=== PATIENT | female | born 1935 | race Caucasian/White ===

== ENCOUNTER 2017-10-19 05:53 | Emergency (ER) | payer OTHER ==
[2017-10-19] MEDS ORDERED: ONDANSETRON 4 MG/2 ML VIAL ONE (06:20)
[2017-10-19] MEDS ORDERED: FENTANYL CITR 100 MCG/2 ML ONE ×2 (06:20→08:30)
[2017-10-19 07:58] LABS: Protime INR 1.29
[2017-10-19] MEDS ORDERED: LIDOCAINE 1% MPF 5 ML VIAL ONE (08:03)
[2017-10-19 08:10] LABS: Absolute Lymphocytes (CBC) 3.5 K/uL (0.7-4.9); Absolute Monocytes 0.5 K/uL (0.1-1.3); Absolute Neutrophil 2.9 K/uL (1.8-8.0); Basophils % 1.2 % (0-1.3); Eosinophils % 0.7 % (0-4.4); Lymphocytes % 50.2 % (15.3-44.8); MCH 32.1 pg (27.0-35.0); MCV 94.4 fL (80-100); MPV 10.6 fL (7.6-11.3); RBC Red Blood Cell Count 4.45 M/uL (3.86-4.86)
[2017-10-19 08:15] LABS: ALT/SGPT 32 U/L (12-78); AST/SGOT 53 U/L (15-37); Albumin 3.2 g/dL (3.4-5.0); Alkaline Phosphatase 155 U/L (45-117); BUN Blood Urea Nitrogen 6 mg/dL (7-18); Bicarbonate 31 mmol/L (21-32); Bilirubin Total 1.2 mg/dL (0.2-1.0); Glucose Level 107 mg/dL (74-106); Potassium 3.7 mmol/L (3.5-5.1); Protein, Total 6.8 g/dL (6.4-8.2); Sodium Level 143 mmol/L (136-145)
--- NOTE | 2017-10-19 08:15 | RAD REPORT ---
EXAM DESCRIPTION: RAD - Chest Single View - 10/19/2017 7:49 am CLINICAL HISTORY: pre-op Chest pain. COMPARISON: No comparisons FINDINGS: Portable technique limits examination quality. Mild linear opacities in both lung bases most compatible with subsegmental atelectasis. The heart is mildly enlarged in size with a tortuous thoracic aorta. No displaced fractures. IMPRESSION: No acute intrathoracic process suspected.
[2017-10-19] MEDS ORDERED: MIDAZOLAM HCL 2 MG/2 ML INJ ONE (08:30)
[2017-10-19] MEDS ORDERED: NA CHLORIDE 0.9% 1,000 ML ONE (08:40)
[2017-10-19 08:46] LABS: Blood Morphology Comment NOT SEEN (NOT SEEN); Platelet Estimate DECR
--- NOTE | 2017-10-19 08:49 | RAD REPORT ---
EXAM DESCRIPTION: RAD - Wrist Left 3 View - 10/19/2017 7:15 am CLINICAL HISTORY: Pain;Deformity Pain COMPARISON: No comparisons FINDINGS: Significantly displaced and overriding fractures involving the distal aspect of the radius and ulna metaphysis. No carpal dislocation seen.
--- NOTE | 2017-10-19 09:23 | EDPHYS ---
Physician Documentation [facility] Name: Camilla Jarquin Age: 82 yrs Sex: Female : 1935 Arrival Date: 10/19/2017 Time: 05:53 Bed 3 Private MD: Frederick Wen E ED Physician Yves Castro HPI: 10/19 06:21 This 82 yrs old Female presents to ER via Wheelchair with complaints of Fall pm1 Injury, Wrist Pain. 06:21 Details of fall: The patient fell from an upright position, while walking. Onset: The pm1 symptoms/episode began/occurred just prior to arrival. Associated injuries: The patient sustained left wrist, obvious fracture. Severity of symptoms:. The patient has experienced a previous episode, Fall resulting in right wrist fracture. Patient with fall while going to the restroom resulting in left wrist injury. Patient did not hit head. No headache, neck pain, LOC. Patient able to walk after injury. No hip pain present. 06:21 Patient has a step down from her toilet to allow drainage. Patient fell walking back to pm1 her room from the bathroom and hit her left wrist against a cabinet. Historical: - Allergies: 06:09 Codeine; aa1 06:09 PENICILLINS; aa1 06:09 Sulfa (Sulfonamide Antibiotics); aa1 06:09 Toradol; aa1 - Home Meds: 06:09 carvedilol 6.25 mg Oral tab 1 tab 2 times per day [Active]; citalopram 40 mg tab 1 tab aa1 once daily [Active]; furosemide 40 mg Oral tab 1 tab 2 times per day [Active]; potassium chloride 10 mEq Oral TbTQ 1 tab once daily [Active]; Lantus 100 unit/mL Sub-Q soln 80 unit nightly [Active]; - PMHx: 06:09 Depression; Hypertension; neuropathy; Diabetes - IDDM; renal insufficiency; aa1 - PSHx: 06:09 AV Fistula; Hernia repair; aa1 - Immunization history:: Flu vaccine is not up to date. - Social history:: Smoking status: Patient/guardian denies using tobacco. - Ebola Screening: : No symptoms or risks identified at this time. ROS: 06:30 Constitutional: Negative for fever, chills, and weight loss, Eyes: Negative for injury, pm1 pain, redness, and discharge, ENT: Negative for injury, pain, and discharge, Neck: Negative for injury, pain, and swelling, Cardiovascular: Negative for chest pain, palpitations, and edema, Respiratory: Negative for shortness of breath, cough, wheezing, and pleuritic chest pain, Abdomen/GI: Negative for abdominal pain, nausea, vomiting, diarrhea, and constipation, Back: Negative for injury and pain, : Negative for injury, bleeding, discharge, and swelling. 06:30 Skin: Negative for injury, rash, and discoloration, Neuro: Negative for headache, weakness, numbness, tingling, and seizure. 06:30 MS/extremity: Positive for deformity, of the left wrist, Negative for paresthesias, tingling. Exam: 06:30 Constitutional: This is a well developed, well nourished patient who is awake, alert, pm1 and in no acute distress. Head/Face: Normocephalic, atraumatic. Eyes: Pupils equal round and reactive to light, extra-ocular motions intact. Lids and lashes normal. Conjunctiva and sclera are non-icteric and not injected. Cornea within normal limits. Periorbital areas with no swelling, redness, or edema. ENT: Nares patent. No nasal discharge, no septal abnormalities noted. Tympanic membranes are normal and external auditory canals are clear. Oropharynx with no redness, swelling, or masses, exudates, or evidence of obstruction, uvula midline. Mucous membranes moist. Neck: Trachea midline, no thyromegaly or masses palpated, and no cervical lymphadenopathy. Supple, full range of motion without nuchal rigidity, or vertebral point tenderness. No Meningismus. Chest/axilla: Normal chest wall appearance and motion. Nontender with no deformity. No lesions are appreciated. Cardiovascular: Regular rate and rhythm with a normal S1 and S2. No gallops, murmurs, or rubs. Normal PMI, no JVD. No pulse deficits. Respiratory: Lungs have equal breath sounds bilaterally, clear to auscultation and percussion. No rales, rhonchi or wheezes noted. No increased work of breathing, no retractions or nasal flaring. Abdomen/GI: Soft, non-tender, with normal bowel sounds. No distension or tympany. No guarding or rebound. No evidence of tenderness throughout. Back: No spinal tenderness. No costovertebral tenderness. Full range of motion. Skin: Warm, dry with normal turgor. Normal color with no rashes, no lesions, and no evidence of cellulitis. 06:30 Musculoskeletal/extremity: Extremities: grossly normal except: noted in the left wrist: deformity, ecchymosis, Circulation is intact in all extremities. brisk capillary refill to left hand. Sensation intact. left hand 06:30 Neuro: Orientation: is normal, Motor: moves all fours, Sensation: is normal, no obvious gross deficits. Vital Signs: 06:09 BP 144 / 66; Pulse 72; Resp 18; Temp 97.1; Pulse Ox 93% on R/A; Weight 90.72 kg; Height aa1 5 ft. 0 in. (152.40 cm); Pain 10/10; 06:55 BP 146 / 86; Pulse 68; Resp 20; Pulse Ox 95% on 2 lpm NC; aa1 07:32 BP 137 / 79; Pulse 82; Resp 16; Pulse Ox 95% on 2 lpm NC; tw2 08:19 BP 127 / 67; Pulse 75; Resp 21; Pulse Ox 97% on 2 lpm NC; tw2 08:40 BP 153 / 61; Pulse 73; Resp 15; Pulse Ox 97% on 100% Non-rebreather mask; hb 09:00 BP 107 / 58; Pulse 78; Resp 15; Pulse Ox 97% on 100% Non-rebreather mask; hb 09:30 BP 118 / 61; Pulse 77; Resp 16; Pulse Ox 100% on 100% Non-rebreather mask; hb 09:45 BP 112 / 50; Pulse 77; Resp 18; Pulse Ox 96% on 3 lpm NC; hb 06:09 Body Mass Index 39.06 (90.72 kg, 152.40 cm) aa1 MDM: 06:02 Patient medically screened. pm1 07:53 Physician consultation: Hemant Rojas MD was called at 07:53, regarding consult, pm1 patient's condition, and will see patient in ED, if I am unable to reduce the patient's wrist adequately. 08:30 ED course: Dr. Rojas present in ER to perform reduction of left wrist under conscious pm1 sedation. 09:18 Physician consultation: Hemant Rojas MD was contacted at 09:18, regarding Dr. Rojas pm1 reviewed x-ray: the alignment is improved and she can be discharged home. She can follow up in the office this week. 09:20 Data reviewed: vital signs. Data interpreted: Pulse oximetry: on room air is 97 %. pm1 Interpretation: normal. Counseling: I had a detailed discussion with the patient and/or guardian regarding: the historical points, exam findings, and any diagnostic results supporting the discharge/admit diagnosis, radiology results, the need for outpatient follow up, for definitive care, a orthopedic surgeon, to return to the emergency department if symptoms worsen or persist or if there are any questions or concerns that arise at home. 10/19 07:34 Order name: CBC with Diff; Complete Time: 08:59 pm1 10/19 07:34 Order name: CMP; Complete Time: 08:25 pm1 10/19 07:34 Order name: PT-INR; Complete Time: 08:10 pm1 10/19 07:34 Order name: Ptt, Activated; Complete Time: 08:10 pm1 10/19 07:34 Order name: Type And Screen; Complete Time: 09:50 pm1 10/19 08:11 Order name: Manual Differential; Complete Time: 08:59 EDMS 10/19 06:07 Order name: Wrist Left (3 View) XRAY; Complete Time: 08:59 pm1 10/19 07:34 Order name: Chest Single View XRAY; Complete Time: 08:25 pm1 10/19 09:13 Order name: Wrist Left 2 View; Complete Time: 09:50 EDMS 10/19 06:07 Order name: IV Saline Lock; Complete Time: 06:13 pm1 10/19 07:34 Order name: EKG; Complete Time: 07:34 pm1 10/19 08:10 Order name: Conscious Sedation; Complete Time: 09:40 tw2 Administered Medications: 06:20 Drug: fentaNYL (PF) 50 mcg Route: IVP; Site: right hand; aa1 07:42 Follow up: Response: No adverse reaction; Pain is decreased tw2 06:20 Drug: Zofran 4 mg Route: IVP; Site: right hand; aa1 07:41 Follow up: Response: No adverse reaction tw2 08:11 Not Given (cancel per provider): fentaNYL (PF) 25 mcg IVP once tw2 08:32 Drug: Versed 2 mg Route: IVP; Site: right wrist; hb 09:39 Follow up: Response: No adverse reaction hb 08:34 Drug: fentaNYL (PF) 25 mcg Route: IVP; Site: right wrist; hb 09:39 Follow up: Response: No adverse reaction hb 08:40 Drug: fentaNYL (PF) 25 mcg Route: IVP; Site: right wrist; hb 09:40 Follow up: Response: No adverse reaction hb 08:45 Drug: Versed 2 mg Route: IVP; Site: right wrist; hb 09:40 Follow up: Response: No adverse reaction hb 08:45 Drug: fentaNYL (PF) 25 mcg Route: IVP; Site: right wrist; hb 09:40 Follow up: Response: No adverse reaction hb Disposition: 10/19/17 09:23 Discharged to Home. Impression: Closed displaced fracture of distal left radius and ulna. - Condition is Stable. - Discharge Instructions: Cast or Splint Care, Adult, Wrist Fracture Treated With Immobilization, How to Use a Sling. - Prescriptions for Ultram 50 mg Oral Tablet - take 1 tablet by ORAL route every 6 hours As needed; 20 tablet. - Medication Reconciliation Form, Thank You Letter, Antibiotic Education, Prescription Opioid Use form. - Follow up: Emergency Department; When: As needed; Reason: Worsening of condition. Follow up: Hemant Rojas MD; When: 2 - 3 days; Reason: Recheck today's complaints, Continuance of care, Re-evaluation by your physician. - Problem is new. - Symptoms have improved. Addendum: 10/22/2017 19:04 Co-signature as Attending Physician, Yves syed Signatures: Dispatcher [employer] EDME Zeinab Coppola RN RN aa1 Yves Castro MD MD pkChacorta Wheeler NP E COMMERCE SPECIALIST pm1 Shannan Orr RN RN Darleen Carrington RN RN tw2 Corrections: (The following items were deleted from the chart) 08 09:13 08:50 Wrist Left 3 View+RAD.RAD.BRZ ordered. [facility] 10:25 09:23 10/19/2017 09:23 Discharged to Home. Impression: Closed displaced fracture of hb distal left radius and ulna. Condition is Stable. Forms are Medication Reconciliation Form, Thank You Letter, Antibiotic Education, Prescription Opioid Use. Follow up: Emergency Department; When: As needed; Reason: Worsening of condition. Follow up: Dr. Hemant Rojas; When: 2 - 3 days; Reason: Recheck today's complaints, Continuance of care, Re-evaluation by your physician. Problem is new. Symptoms have improved. pm1
--- NOTE | 2017-10-19 09:23 | ER ---
Nurse's Notes [facility] Name: Camilla Jarquin Age: 82 yrs Sex: Female : 1935 Arrival Date: 10/19/2017 Time: 05:53 Bed 3 Private MD: Frederick Wen E Diagnosis: Closed displaced fracture of distal left radius and ulna Presentation: 10/19 06:04 Presenting complaint: Patient states: she lost her balance and fell while using the aa1 restroom and injured her L wrist. Obvious deformity noted. Transition of care: patient was not received from another setting of care. Onset of symptoms was October 19, 2017. Risk Assessment: Do you want to hurt yourself or someone else? Patient reports no desire to harm self or others. Initial Sepsis Screen: Does the patient meet any 2 criteria? No. Patient's initial sepsis screen is negative. Does the patient have a suspected source of infection? No. Patient's initial sepsis screen is negative. Care prior to arrival: None. 06:04 Method Of Arrival: Wheelchair aa1 06:04 Acuity: SHOAIB 3 aa1 Historical: - Allergies: 06:09 Codeine; aa1 06:09 PENICILLINS; aa1 06:09 Sulfa (Sulfonamide Antibiotics); aa1 06:09 Toradol; aa1 - Home Meds: 06:09 carvedilol 6.25 mg Oral tab 1 tab 2 times per day [Active]; citalopram 40 mg tab 1 tab aa1 once daily [Active]; furosemide 40 mg Oral tab 1 tab 2 times per day [Active]; potassium chloride 10 mEq Oral TbTQ 1 tab once daily [Active]; Lantus 100 unit/mL Sub-Q soln 80 unit nightly [Active]; - PMHx: 06:09 Depression; Hypertension; neuropathy; Diabetes - IDDM; renal insufficiency; aa1 - PSHx: 06:09 AV Fistula; Hernia repair; aa1 - Immunization history:: Flu vaccine is not up to date. - Social history:: Smoking status: Patient/guardian denies using tobacco. - Ebola Screening: : No symptoms or risks identified at this time. Screenin:11 Abuse screen: Denies threats or abuse. Abuse screen: Denies injuries from another. aa1 Nutritional screening: No deficits noted. Tuberculosis screening: No symptoms or risk factors identified. Fall Risk Fall in past 12 months (25 points). Assessment: 06:11 General: Appears in no apparent distress. comfortable, Behavior is calm, cooperative, aa1 appropriate for age. Pain: Complains of pain in dorsal aspect of left forearm and left wrist Pain currently is 10 out of 10 on a pain scale. Neuro: Level of Consciousness is awake, alert, obeys commands, Oriented to person, place, time, situation. Respiratory: Airway is patent Respiratory effort is even, unlabored, Respiratory pattern is regular, symmetrical. GI: No signs and/or symptoms were reported involving the gastrointestinal system. : No signs and/or symptoms were reported regarding the genitourinary system. EENT: No signs and/or symptoms were reported regarding the EENT system. Derm: Skin is intact, is healthy with good turgor, Skin is pink, warm \T\ dry. Musculoskeletal: Circulation, motion, and sensation intact. Capillary refill < 3 seconds, Range of motion: limited in left wrist Bony deformity noted of left wrist. 06:55 Reassessment: Patient appears in no apparent distress at this time. Patient and/or aa1 family updated on plan of care and expected duration. Pain level reassessed. Patient is alert, oriented x 3, equal unlabored respirations, skin warm/dry/pink. Awaiting xray results. 07:33 Reassessment: Provider at bedside at this time. Cardiovascular: Denies chest pain, tw2 Heart tones S1 S2 Patient's skin is warm and dry. 08:20 Reassessment: Dr. Rojas at bedside at this time. tw2 08:30 Reassessment: Dr. Rojas and DMAASO Whatley at bedside for conscious sedation and reduction hb of left wrist. See paper chart. 09:30 Reassessment: Pt remains sedated, VSS, NAD. Family at bedside. hb Vital Signs: 06:09 BP 144 / 66; Pulse 72; Resp 18; Temp 97.1; Pulse Ox 93% on R/A; Weight 90.72 kg; Height aa1 5 ft. 0 in. (152.40 cm); Pain 10/10; 06:55 BP 146 / 86; Pulse 68; Resp 20; Pulse Ox 95% on 2 lpm NC; aa1 07:32 BP 137 / 79; Pulse 82; Resp 16; Pulse Ox 95% on 2 lpm NC; tw2 08:19 BP 127 / 67; Pulse 75; Resp 21; Pulse Ox 97% on 2 lpm NC; tw2 08:40 BP 153 / 61; Pulse 73; Resp 15; Pulse Ox 97% on 100% Non-rebreather mask; hb 09:00 BP 107 / 58; Pulse 78; Resp 15; Pulse Ox 97% on 100% Non-rebreather mask; hb 09:30 BP 118 / 61; Pulse 77; Resp 16; Pulse Ox 100% on 100% Non-rebreather mask; hb 09:45 BP 112 / 50; Pulse 77; Resp 18; Pulse Ox 96% on 3 lpm NC; hb 06:09 Body Mass Index 39.06 (90.72 kg, 152.40 cm) aa1 ED Course: 05:53 Patient arrived in ED. am2 05:54 Frederick Wen MD is Private Physician. am2 06:02 Chacorta Nieves NP is PHCP. pm1 06:02 Yves Castro MD is Attending Physician. pm1 06:05 Triage completed. aa1 06:09 Arm band placed on right wrist. Patient placed in an exam room, on a stretcher. aa1 06:11 Patient has correct armband on for positive identification. Bed in low position. Call aa1 light in reach. Pulse ox on. NIBP on. Warm blanket given. 06:11 Inserted saline lock: 22 gauge in right hand, using aseptic technique. Blood collected. aa1 06:25 Oxygen administration via nasal cannula \T\ 2L/min. aa1 06:55 X-ray completed. Portable x-ray completed in exam room. Patient tolerated procedure kw well. 07:00 Darleen Carrington, NATANAEL is Primary Nurse. tw2 07:16 Wrist Left (3 View) XRAY In Process Unspecified. EDMS 07:49 X-ray completed. Portable x-ray completed in exam room. Patient tolerated procedure jb2 well. 07:49 Chest Single View XRAY In Process Unspecified. EDMS 07:55 Consent for conscious sedation explained by physician. hb 08:20 EKG done, by manufacturing plant technician. reviewed by Chacorta Nieves NP. at1 08:35 Assist provider with reduction of left wrist using traction, manipulation, Set up for hb procedure. Performed by Hemant Rojas MD Immobilized with plaster sugar tong Patient tolerated well. 09:15 Wrist Left 2 View In Process Unspecified. EDMS 09:21 Hemant Rojas MD is Referral Physician. pm1 10:25 IV discontinued, intact, bleeding controlled, No redness/swelling at site. Pressure hb dressing applied. Administered Medications: 06:20 Drug: fentaNYL (PF) 50 mcg Route: IVP; Site: right hand; aa1 07:42 Follow up: Response: No adverse reaction; Pain is decreased tw2 06:20 Drug: Zofran 4 mg Route: IVP; Site: right hand; aa1 07:41 Follow up: Response: No adverse reaction tw2 08:11 Not Given (cancel per provider): fentaNYL (PF) 25 mcg IVP once tw2 08:32 Drug: Versed 2 mg Route: IVP; Site: right wrist; hb 09:39 Follow up: Response: No adverse reaction hb 08:34 Drug: fentaNYL (PF) 25 mcg Route: IVP; Site: right wrist; hb 09:39 Follow up: Response: No adverse reaction hb 08:40 Drug: fentaNYL (PF) 25 mcg Route: IVP; Site: right wrist; hb 09:40 Follow up: Response: No adverse reaction hb 08:45 Drug: Versed 2 mg Route: IVP; Site: right wrist; hb 09:40 Follow up: Response: No adverse reaction hb 08:45 Drug: fentaNYL (PF) 25 mcg Route: IVP; Site: right wrist; hb 09:40 Follow up: Response: No adverse reaction hb Outcome: 09:23 Discharge ordered by MD. pm1 10:24 Discharged to home via wheelchair, with family. hb 10:24 Condition: stable 10:24 Discharge instructions given to patient, family, Instructed on discharge instructions, follow up and referral plans. medication usage, Demonstrated understanding of instructions, follow-up care, medications, splint care, Prescriptions given X 1. 10:25 Patient left the ED. hb Signatures: Dispatcher [employer] EDMS Zeinab Coppola RN RN aa1 Kwabena Quigley jb2 Linette Kebede Amanda, founding partner EKG Tat1 Chacorta Nieves, DAMASO SIGHTER pm1 Shannan Orr RN RN Darleen Carrington RN RN tw2 Fely Tinsley am2 Corrections: (The following items were deleted from the chart) 10:03 08:50 Reassessment: hb hb
--- NOTE | 2017-10-19 09:40 | RAD REPORT ---
EXAM DESCRIPTION: RAD - Wrist Left 2 View - 10/19/2017 9:15 am CLINICAL HISTORY: post reduction- done Pain COMPARISON: Wrist Left 3 View dated 10/19/2017 FINDINGS: The previously noted significantly displaced intraarticular fracture of the distal radius and fracture of the distal ulna have been reduced in a splint. Significant reduction of the fracture s noted although bone detail is obscured.
--- NOTE | 2017-10-19 19:31 | CON ---
Date of Consultation: 10/19/2017 Attending Physician: Hemant Rojas MD. Reason For Consultation: Left wrist pain. History Of Present Illness: Ms. Jarquin is an 82-year-old female who presented to the ER today after s ustaining a fall and striking her left wrist. She reports subsequent pain and deformity to her left wrist. X-rays in the emergency room demonstrated a displaced angulated left distal radius fracture. I was called for further evaluation and treatment, given her significant displacement. The patient denies any head trauma or loss of consciousness. She denies any other musculoskeletal complaints at this time. Review of Systems: As above, otherwise negative. Past Medical History: Includes depression, hypertension, diabetes, and renal insufficiency. Past Surgical History: Includes a hernia repair and AV fistula. Home Medications: Carvedilol, citalopram, furosemide, potassium chloride, Lantus. Allergies: TO CODEINE, PENICILLIN, SULFA, TORADOL. Social History: She denies tobacco or alcohol use. Physical Examination: General: No apparent distress. HEENT: Normocephalic, atraumatic. Neck: Supple. Cardiovascular: Brisk cap refill to all digits. Chest: Nonlabored breathing. Abdomen: Nondistended. Psychiatric: Responds to exam. Musculoskeletal: Left upper extremity, she has deformity of her left wrist. No skin abrasions or op en injuries to her left wrist. There is a hematoma over the volar aspect of her left wrist. She has positive firing of EPL, FPL, intrinsics. Sensation is grossly intact to light touch in the radial, median, and ulnar nerve distribution. X-rays: X-rays of her left wrist demonstrate a displaced intra-articular distal radius fracture with 100% displacement and dorsal angulation. Postreduction, x-rays demonstrated a reduced intra-articul ar left distal radius fracture with the distal fragment now reduced onto the proximal fragment. No s ignificant dorsal angulation. There is a split of the radial styloid piece with minimal displacement . Assessment And Plan: Ms. Jarquin is an 82-year-old female with a left intra-articular distal radius fr acture. I discussed with the patient at length, risks and benefits associated with operative and non operative treatment as well as diagnosis and she expressed understanding. Given our significant disp lacement of her wrist, I recommended manipulation and closed reduction under conscious sedation. Con scious sedation was run by emergency room staff, and she tolerated the procedure without complication . She was placed in a sugar-tong splint. Post reduction films demonstrated good reduction of her fr acture. She will follow up in my clinic this week or early next week for repeat x-rays of her left w rist and we will discuss the further treatment based on the x-rays. She will keep her left upper ext remity elevated and to minimize swelling. RAJ/JANEY Voice ID: [id number] Report ID: [id number]
--- NOTE | 2017-10-20 06:52 | EKG ---
Test Date: 2017-10-19 Test Time: 08:13:51 [employer] Rep: IGNACIA MEASUREMENT RESULTS: Intervals: Rate: 73 [place]: 190 QRSD: 74 QT: 428 QTc: 471 [place]: P: 49 [place]: 190 QRS: -15 T: 32 INTERPRETIVE STATEMENTS: Normal sinus rhythm Inferior infarct, age undetermined Anterolateral infarct, age undetermined Abnormal ECG No previous ECG available for comparison Electronically Signed On 10-20-17 06:50:52 CDT by Ben Dallas
== END 2017-10-19 10:25 | disposition home or self-care (01) ==
LOC: ER 05:53
PROC: 0PSJXZZ Reposition Left Radius, External Approach (ICD-10-PCS; principal; 2017-10-19)
DX: S52.572A Other intraarticular fracture of lower end of left radius, initial encounter for closed fracture (principal); S52.692A Other fracture of lower end of left ulna, initial encounter for closed fracture; W01.190A Fall on same level from slipping, tripping and stumbling with subsequent striking against furniture, initial encounter; Y93.01 Activity, walking, marching and hiking; Y92.012 Bathroom of single-family (private) house as the place of occurrence of the external cause; I10 Essential (primary) hypertension; Z88.5 Allergy status to narcotic agent; Z88.0 Allergy status to penicillin; Z88.2 Allergy status to sulfonamides; E11.40 Type 2 diabetes mellitus with diabetic neuropathy, unspecified; Z79.4 Long term (current) use of insulin
CPT/HCPCS: 25605; 36415; 71045; 73100; 73110; 80053; 85025; 85610; 85730; 86850; 86900; 86901; 93005; J2250; J2405; J3010 ×2; J7030; 99285

== ENCOUNTER 2019-03-05 10:30 | Emergency (ER) | payer OTHER ==
--- OUTSIDE RECORDS SUMMARY | 2019-03-05 10:32 | XMS REPORT ---
:1935 Author Organization [employer] Care Team Providers Name Role Phone Hemant Rojas Provider Role Unavailable Allergies, Adverse Reactions, Alerts Substance Reaction Event Type penicillin Info Not Available Drug Allergy codeine Info Not Available Drug Allergy Sulfa Info Not Available Drug Allergy Problems Problem Type Condition Code Onset Dates Condition Status Assessment Pain in left wrist M25.532 Active Assessment Other intraarticular fracture of S52.572D Active lower end of left radius, subsequent encounter for closed fracture with routine healing Medications Medication Code Code Instructions Start End Date Status Dosage System Date Carvedilol [facility] 68362987243 6.25 MG Oral Active (Prior Auth: Rx Ref#:[id number]) Furosemide ND 85814530925 40 MG Oral Active (Prior Auth: Rx Ref#:[id number]) Lantus ND 73232544488 100 UNIT/ML Active (Prior [employer] Subcutaneous Auth: Rx Ref#:[id number]) Tramadol HCl ND [id number] 50 MG Orally Oct 26, Nov 05, Active 1 tablet every 6 hrs 2017 2017 as needed Tramadol HCl [facility] 64367821007 50 MG Oral Active (Schedule IV Drug) (Prior Auth: Rx Ref#:[id number]) Klor-Con 10 [facility] 90401626301 10 MEQ Oral Active (Prior Auth: Rx Ref#:[id number]) Celexa ND 76058100529 20 MG Orally Oct 26, Active 1 tablet Once a day 2018 Results No Known Results Summary Purpose [employer] Submission
--- OUTSIDE RECORDS SUMMARY | 2019-03-05 10:32 | XMS REPORT ---
:1935 Author Organization eClinical[employer] Care Team Providers Name Role Phone Hemant Rojas Provider Role Unavailable Allergies, Adverse Reactions, Alerts Substance Reaction Event Type penicillin Info Not Available Drug Allergy codeine Info Not Available Drug Allergy Sulfa Info Not Available Drug Allergy Problems Problem Type Condition Code Onset Dates Condition Status Assessment Wrist pain, left M25.532 Active Assessment Other closed intra-articular S52.572A Active fracture of distal end of left radius, initial encounter Medications Medication Code Code Instructions Start End Date Status Dosage System Date Tramadol HCl [facility] 37492767712 50 MG Orally Oct 26, Nov 05, Active 1 tablet every 6 hrs 2017 2017 as needed Tramadol HCl [facility] 67251498010 50 MG Oral Active (Schedule IV Drug) (Prior Auth: Rx Ref#:[id number]) Klor-Con 10 [facility] 65408014120 10 MEQ Oral Active (Prior Auth: Rx Ref#:[id number]) Furosemide ND [id number] 40 MG Oral Active (Prior Auth: Rx Ref#:[id number]) Carvedilol [facility] 93202397958 6.25 MG Oral Active (Prior Auth: Rx Ref#:[id number]) Lantus ND 54860701702 100 UNIT/ML Active (Prior [employer] Auth: Rx Ref#:[id number]) Celexa ND 03223651700 20 MG Orally Oct 26, Active 1 tablet Once a day 2017 Results No Known Results Summary Purpose eClinicalWorks Submission
[2019-03-05] MEDS ORDERED: FENTANYL CITR 100 MCG/2 ML ONE (11:12)
[2019-03-05] MEDS ORDERED: ONDANSETRON 4 MG (ODT) TAB ONE (11:13)
[2019-03-05] MEDS ORDERED: LIDOCAINE 4% PATCH ONE (11:13)
--- NOTE | 2019-03-05 11:48 | RAD REPORT ---
EXAM DESCRIPTION: CT - Stone Protocol - 03/05/2019 11:26 am CLINICAL HISTORY: Abdominal pain. COMPARISON: None. TECHNIQUE: Computed axial tomography of the abdomen pelvis was obtained without oral or IV contrast. Lack of IV and oral contrast limits evaluation of solid organs, bowel, and vessels. Coronal reformat lenny images were obtained and reviewed. All CT scans are performed using dose optimization technique as appropriate and may include automated exposure control or mA/KV adjustment according to patient size. FINDINGS: 2 millimeter calculus left kidney. No hydronephrosis. 6.3 centimeter peripherally calcifie d mass right kidney. There appear to be coils medial to this. An ureteral calculus is not noted. A bladder calculus is not present. Cirrhotic liver. The spleen is mildly to moderately enlarged. Varices are present. Atrophic pancreas There is no evidence of diverticulitis. The appendix appears normal Umbilical hernia contains fat. Neck measures 23 millimeters. Herniated sac measures 58 millimeters. N ew small supra umbilical hernia contains fat. Small right pleural effusion. Small amount of ascites Small to moderate hiatal hernia IMPRESSION: 2 millimeter nonobstructing left renal calculus It appears that the patient has had renal arterial coils placed for the 6.3 centimeter peripherally c alcified right renal mass. Presumably this represents an arterial aneurysm. This should be correlated clinically. If this is not the case then renal ultrasound would be recommended for further evaluatio n.
--- NOTE | 2019-03-05 12:44 | ER ---
Nurse's Notes [facility] Name: Camilla Jarquin Age: 83 yrs Sex: Female : 1935 Arrival Date: 03/05/2019 Time: 10:32 Bed 4 Private MD: Frederick Wen E Diagnosis: Low back pain Presentation: 03/05 10:42 Presenting complaint: Child states: "A week and a half ago she reached for the table aj1 side lamp to turn it off and something pulled or something and it hurt real bad, we've been trying to doctor it at home, she had Tramadol from when she broke her arm a couple years ago so we've been giving her that and icy hot patches but the pain has gotten unbearable." Patient reports lower back pain. Transition of care: patient was not received from another setting of care. Onset of symptoms was 2018. Risk Assessment: Do you want to hurt yourself or someone else? Patient reports no desire to harm self or others. Initial Sepsis Screen: Does the patient meet any 2 criteria? No. Patient's initial sepsis screen is negative. Does the patient have a suspected source of infection? No. Patient's initial sepsis screen is negative. Care prior to arrival: None. 10:42 Method Of Arrival: Wheelchair aj1 10:42 Acuity: SHOAIB 3 aj1 Triage Assessment: 10:46 General: Appears in no apparent distress. uncomfortable, Behavior is calm, cooperative, aj1 appropriate for age. Pain: Complains of pain in low back area. Neuro: Level of Consciousness is awake, alert, obeys commands. Cardiovascular: Patient's skin is warm and dry. Respiratory: Airway is patent Respiratory effort is even, unlabored, Respiratory pattern is regular, symmetrical. Musculoskeletal: Range of motion: intact in all extremities. Historical: - Allergies: 10:46 Codeine; aj1 10:46 PENICILLINS; aj1 10:46 Sulfa (Sulfonamide Antibiotics); aj1 10:46 Toradol; aj1 - Home Meds: 10:46 potassium chloride 10 mEq Oral TbTQ 1 tab once daily [Active]; carvedilol 6.25 mg Oral aj1 tab 1 tab 2 times per day [Active]; furosemide 40 mg Oral tab 1 tab 2 times per day [Active]; citalopram 40 mg tab 1 tab once daily [Active]; Lantus 100 unit/mL Sub-Q soln 80 unit nightly [Active]; Krill Oil ([place] 3 and 6) 1,500-165-67.5 mg oral cap 350 mg [Active]; iron oral oral [Active]; Prilosec 20 mg Oral cpDR 1 cap once daily [Active]; - PMHx: 10:46 Depression; Diabetes - IDDM; Hypertension; neuropathy; renal insufficiency; aj1 - Immunization history:: Flu vaccine is not up to date. - Social history:: Smoking status: Patient/guardian denies using tobacco. - Ebola Screening: : Patient denies travel to an Ebola-affected area in the 21 days before illness onset. Screenin:02 Abuse screen: Denies threats or abuse. Nutritional screening: No deficits noted. tw2 Tuberculosis screening: No symptoms or risk factors identified. Fall Risk Secondary diagnosis (15 points) impaired mobility. Assessment: 10:50 General: Appears in no apparent distress. uncomfortable, Behavior is calm, cooperative, jl7 appropriate for age. Pain: Complains of pain in left low back Pain does not radiate. Pain currently is 10 out of 10 on a pain scale. Quality of pain is described as sharp, Pain began x 2 weeks Is continuous. Neuro: Level of Consciousness is awake, alert, obeys commands, Oriented to person, place, time, situation, Moves all extremities. Full function. Cardiovascular: Patient's skin is warm and dry. Respiratory: Airway is patent Respiratory effort is even, unlabored, Respiratory pattern is regular, symmetrical. GI: No signs and/or symptoms were reported involving the gastrointestinal system. : No signs and/or symptoms were reported regarding the genitourinary system. EENT: No signs and/or symptoms were reported regarding the EENT system. Derm: Skin is pink, warm \\T\\ dry. Musculoskeletal: Swelling absent Tenderness present in left low back Reports pain in left low back Pain is 10 out of 10 on a pain scale. 12:19 Reassessment: Patient appears in no apparent distress at this time. Patient and/or jl7 family updated on plan of care and expected duration. Pain level reassessed. Patient is alert, oriented x 3, equal unlabored respirations, skin warm/dry/pink. pain decreased at this time. Vital Signs: 10:46 BP 166 / 77; Pulse 75; Resp 20; Temp 97.2(TE); Pulse Ox 90% on R/A; Weight 90.72 kg aj1 (R); Height 5 ft. 0 in. (152.40 cm) (R); Pain 10/10; 12:22 BP 140 / 61; Pulse 74; Resp 19 S; Pulse Ox 95% on R/A; Pain 9/10; jl7 13:00 BP 136 / 75; Pulse 74; Resp 16 S; Pulse Ox 94% on R/A; Pain 9/10; jl7 10:46 Body Mass Index 39.06 (90.72 kg, 152.40 cm) aj1 ED Course: 10:32 Patient arrived in ED. mr 10:32 Frederick Wen MD is Private Physician. mr 10:43 Triage completed. aj1 10:46 Arm band placed on Patient placed in an exam room. aj1 10:48 Bed in low position. Call light in reach. Side rails up X2. Adult w/ patient. tw2 10:49 Chacorta Nieves NP is PHCP. pm1 10:49 Karla Luu MD is Attending Physician. pm1 10:49 Wendie Morales RN is Primary Nurse. jl7 11:25 CT completed. Patient tolerated procedure well. Patient moved back from CT. mw3 11:26 CT Stone Protocol In Process Unspecified. EDMS 12:19 No provider procedures requiring assistance completed. Patient did not have IV access jl7 during this emergency room visit. Administered Medications: 11:17 Drug: Lidoderm 5 % (700 mg/patch) 1 patches {Note: Lidoderm 4% patch applied.} Route: jl7 Topical; Site: affected area; 11:45 Follow up: Response: No adverse reaction; Pain is decreased jl7 11:18 Drug: fentaNYL (PF) 25 mcg Route: IM; Site: left deltoid; jl7 11:45 Follow up: Response: No adverse reaction; Pain is decreased jl7 11:18 Drug: Zofran 4 mg Route: PO; jl7 11:55 Follow up: Response: No adverse reaction jl7 Outcome: 12:43 Discharge ordered by . pm1 13:00 Discharged to home via wheelchair, with family. jl7 13:00 Condition: stable 13:00 Discharge instructions given to patient, family, Instructed on discharge instructions, the need for admit, medication usage, Demonstrated understanding of instructions, follow-up care, medications, Prescriptions given X 2. 13:00 Patient left the ED. [email or web address] Signatures: Dispatcher [employer] EDMS Inna Tyler, RN RN aj1 Claudia Hayes EzequielChacorta, STUNT PERSON STUNT PERSON pm1 Darleen Carrington RN RN tw2 Wendie Morales RN RN jl7 Karyn Lund 3
--- NOTE | 2019-03-05 12:44 | EDPHYS ---
Physician Documentation [facility] Name: Camilla Jarquin Age: 83 yrs Sex: Female : 1935 Arrival Date: 03/05/2019 Time: 10:32 Bed 4 Private MD: Frederick Wen E ED Physician Karla Luu HPI: 03/05 11:05 This 83 yrs old Female presents to ER via Wheelchair with complaints of Back pm1 Pain. 11:05 The patient presents with pain that is acute. The symptoms are located in the low back. pm1 Onset: The symptoms/episode began/occurred 1.5 week(s) ago. The pain does not radiate. Associated signs and symptoms: The patient has no apparent associated signs or symptoms, Pertinent negatives: abdominal pain, chest pain, dysuria, fever, nausea, vomiting, shortness of breath. The problem was sustained from twisting, patient was reaching over in the bed to turn off the lamp and felt pain in her left lower back. Modifying factors: The patient symptoms are alleviated by remaining still, the patient symptoms are aggravated by movement. Severity of symptoms: in the emergency department the symptoms are unchanged. The patient has not recently seen a physician. Historical: - Allergies: 10:46 Codeine; aj1 10:46 PENICILLINS; aj1 10:46 Sulfa (Sulfonamide Antibiotics); aj1 10:46 Toradol; aj1 - Home Meds: 10:46 potassium chloride 10 mEq Oral TbTQ 1 tab once daily [Active]; carvedilol 6.25 mg Oral aj1 tab 1 tab 2 times per day [Active]; furosemide 40 mg Oral tab 1 tab 2 times per day [Active]; citalopram 40 mg tab 1 tab once daily [Active]; Lantus 100 unit/mL Sub-Q soln 80 unit nightly [Active]; Krill Oil ([place] 3 and 6) 1,500-165-67.5 mg oral cap 350 mg [Active]; iron oral oral [Active]; Prilosec 20 mg Oral cpDR 1 cap once daily [Active]; - PMHx: 10:46 Depression; Diabetes - IDDM; Hypertension; neuropathy; renal insufficiency; aj1 - Immunization history:: Flu vaccine is not up to date. - Social history:: Smoking status: Patient/guardian denies using tobacco. - Ebola Screening: : Patient denies travel to an Ebola-affected area in the 21 days before illness onset. ROS: 11:05 Constitutional: Negative for fever, chills, and weight loss, Neck: Negative for injury, pm1 pain, and swelling, Cardiovascular: Negative for chest pain, palpitations, and edema, Respiratory: Negative for shortness of breath, cough, wheezing, and pleuritic chest pain, Abdomen/GI: Negative for abdominal pain, nausea, vomiting, diarrhea, and constipation. 11:05 : Negative for injury, bleeding, discharge, and swelling, MS/Extremity: Negative for injury and deformity, Skin: Negative for injury, rash, and discoloration, Neuro: Negative for headache, weakness, numbness, tingling, and seizure. 11:05 Back: Positive for of the left low back pain. Exam: 11:05 Constitutional: This is a well developed, well nourished patient who is awake, alert, pm1 and in no acute distress. Head/Face: Normocephalic, atraumatic. Neck: Trachea midline, no thyromegaly or masses palpated, and no cervical lymphadenopathy. Supple, full range of motion without nuchal rigidity, or vertebral point tenderness. No Meningismus. Chest/axilla: Normal chest wall appearance and motion. Nontender with no deformity. No lesions are appreciated. Cardiovascular: Regular rate and rhythm with a normal S1 and S2. No gallops, murmurs, or rubs. Normal PMI, no JVD. No pulse deficits. Respiratory: Lungs have equal breath sounds bilaterally, clear to auscultation and percussion. No rales, rhonchi or wheezes noted. No increased work of breathing, no retractions or nasal flaring. Abdomen/GI: Soft, non-tender, with normal bowel sounds. No distension or tympany. No guarding or rebound. No evidence of tenderness throughout. 11:05 Skin: Warm, dry with normal turgor. Normal color with no rashes, no lesions, and no evidence of cellulitis. MS/ Extremity: Pulses equal, no cyanosis. Neurovascular intact. Full, normal range of motion. 11:05 Back: focal point pain present to left side of lower back. 11:05 Back: vertebral tenderness, is not appreciated. 11:05 Neuro: Orientation: is normal, Motor: is normal, moves all fours. Vital Signs: 10:46 BP 166 / 77; Pulse 75; Resp 20; Temp 97.2(TE); Pulse Ox 90% on R/A; Weight 90.72 kg aj1 (R); Height 5 ft. 0 in. (152.40 cm) (R); Pain 10/10; 12:22 BP 140 / 61; Pulse 74; Resp 19 S; Pulse Ox 95% on R/A; Pain 9/10; jl7 13:00 BP 136 / 75; Pulse 74; Resp 16 S; Pulse Ox 94% on R/A; Pain 9/10; jl7 10:46 Body Mass Index 39.06 (90.72 kg, 152.40 cm) aj1 MDM: 10:49 Patient medically screened. pm1 12:41 Data reviewed: vital signs. Data interpreted: Pulse oximetry: on room air is 95 %. pm1 Interpretation: normal. Counseling: I had a detailed discussion with the patient and/or guardian regarding: the historical points, exam findings, and any diagnostic results supporting the discharge/admit diagnosis, radiology results, the need for outpatient follow up, to return to the emergency department if symptoms worsen or persist or if there are any questions or concerns that arise at home. 03/05 11:05 Order name: CT Stone Protocol; Complete Time: 12:00 pm1 Administered Medications: 11:17 Drug: Lidoderm 5 % (700 mg/patch) 1 patches {Note: Lidoderm 4% patch applied.} Route: jl7 Topical; Site: affected area; 11:45 Follow up: Response: No adverse reaction; Pain is decreased jl7 11:18 Drug: fentaNYL (PF) 25 mcg Route: IM; Site: left deltoid; jl7 11:45 Follow up: Response: No adverse reaction; Pain is decreased jl7 11:18 Drug: Zofran 4 mg Route: PO; jl7 11:55 Follow up: Response: No adverse reaction jl7 Disposition: 16:14 Co-signature as Attending Physician, Karla Luu MD. ma2 Disposition: 03/05/19 12:43 Discharged to Home. Impression: Low back pain. - Condition is Stable. - Discharge Instructions: Back Pain, Adult, Musculoskeletal Pain, Back Injury Prevention, [id number]. - Prescriptions for Lidoderm 5 % Topical adhesive patch,medicated - apply 1 patch by TRANSDERMAL route once daily As needed; 30 Transdermal Patch. Valium 2 mg Oral Tablet - take 1 tablet by ORAL route every 8 hours As needed; 10 tablet. - Medication Reconciliation Form, Thank You Letter, Antibiotic Education, Prescription Opioid Use form. - Follow up: Emergency Department; When: As needed; Reason: Worsening of condition. Follow up: Private Physician; When: 2 - 3 days; Reason: Recheck today's complaints, Continuance of care, Re-evaluation by your physician. - Problem is new. - Symptoms have improved. Signatures: Dispatcher [employer] EDMS Inna Tyler RN RN aj1 Chacorta Nieves NP [employer] pm1 Wendie Morales RN RN jl7 Karla Luu MD MD ma2 Corrections: (The following items were deleted from the chart) 13:00 12:43 03/05/2019 12:43 Discharged to Home. Impression: Low back pain. Condition is jl7 Stable. Forms are Medication Reconciliation Form, Thank You Letter, Antibiotic Education, Prescription Opioid Use. Follow up: Emergency Department; When: As needed; Reason: Worsening of condition. Follow up: Private Physician; When: 2 - 3 days; Reason: Recheck today's complaints, Continuance of care, Re-evaluation by your physician. Problem is new. Symptoms have improved. pm1
[2019-03-05 17:44] VITALS: TEMP 97.2
[2019-03-05 17:46] VITALS: BP 136/75; O2SAT 94
== END 2019-03-05 13:00 | disposition home or self-care (01) ==
LOC: ER 10:30
DX: M54.5 Low back pain (principal); Z88.6 Allergy status to analgesic agent; Z88.0 Allergy status to penicillin; Z88.2 Allergy status to sulfonamides; E11.9 Type 2 diabetes mellitus without complications; F41.9 Anxiety disorder, unspecified; I10 Essential (primary) hypertension; Z79.4 Long term (current) use of insulin
CPT/HCPCS: 76377; 74176; 96372; 99284; J3010

== ENCOUNTER 2019-08-11 11:13 | Inpatient (IN) | payer OTHER ==
--- OUTSIDE RECORDS SUMMARY | 2019-08-11 12:23 | XMS REPORT ---
:1935 Author Organization [facility] Address [address] [place] [address] [address] [place] [address] Care Team Providers Name Role Phone Unavailable Unavailable Unavailable Problems Condition Condition Condition Status Onset Resolution Last Treating Co mments Source Name Details Category Date Date Treatment Clinician Date Pain in Pain in Diagnosis Active [facility] wrist Nikkie k[facility] - [facility] ent Clinics Other Other Diagnosis Active [facility] intraartic intraartic Nikkie kes - ular ular [facility] fracture fracture l of lower of lower Outpat i end of end of ent left left Clinics radius, radius, subsequent subsequent encounter encounter for closed for closed fracture fracture with with routine routine healing healing Allergies, Adverse Reactions, Alerts Allergy Allergy Status Severity Reaction(s) Onset Inactive Treating Comm ents Source Name Type Date Date Clinician penicill Adverse Active Info Not [facility] Reaction Available [facility]ics codeine Adverse Active Info Not [facility] Reaction Available [facility] Sulfa Adverse Active Info Not [facility] Reaction Available [facility] - [facility] ent [facility] Medications Ordered Filled Start Stop Current Ordering Indication Dosage Frequency Signature Comments Components Source Medication Medication Date Date Medication? Clinician (SIG) Name Name Celexa Celexa Yes Hemant [address] 10-26 [facility]jas [facility] - [facility]: [facility] 00 l [facility] ent Clinics Tramadol Tramadol 2018- No Hemant [address] [facility] [address] HCl HCl 10-26 Roajs as needed [facility]00 [facility] 00 :00 l [facility] ent [facility] Tramadol Tramadol Yes Hemant (Schedule [facility] HCl HCl Rojas IV Drug) [facility] - (Prior [facility] Auth: Rx l Ref#:[id number] [facility] [id number]) ent Clinics Klor-Con 10 Klor-Con 10 Yes Hemant (Prior [facility] Rojas Auth: Rx [facility] - Ref#:[id number] [facility] [id number]) [facility] ent [facility] Furosemide Furosemide Yes Hemant (Prior [facility] Auth: Rx [facility] - Ref#:[id number] [facility] [id number]) [facility] ent Clinics Carvedilol Carvedilol Yes Hemant (Prior [facility] Auth: Rx [facility] - Ref#:[id number] [facility] [id number]) [facility] ent Clinics Lantus Lantus Yes Hemant (Prior [facility] [employer] [place] Auth: Rx Kajal es - Ref#:[id number] [facility] [id number]) [facility] ent [facility] Procedures This patient has no known procedures. Encounters Start End Encounter Admission Attending Care Care Encounter Source Date/Time Date/Time Type Type Clinicians Facility Department ID 2017-11-03 2017-11-03 Outpatient Tj Sol[facility] [id number] [facility] 14:[facility] 14[facility] 2017-10-26 2017-10-26 Outpatient Tj [facility] [id number] [facility] [address] 08:30:00 08:30:00 [facility] Results This patient has no known results.
--- NOTE | 2019-08-11 12:38 | RAD REPORT ---
EXAM DESCRIPTION: [place] Single View08/11/2019 12:29 pm CLINICAL HISTORY: Shortness of breath COMPARISON: 2018 FINDINGS: Left base is hazy. Right lung appears clear of acute infiltrate. The heart is enlarged IMPRESSION: Left base is hazy. This could be secondary to atelectasis, pneumonia or pleural effusion
[2019-08-11] MEDS ORDERED: FUROSEMIDE 40 MG/4 ML VIAL ONE (12:52)
[2019-08-11 12:54] LABS: Basophils % 0.7 % (0-1.3); Hematocrit 41.4 % (36.0-45.0); Lymphocytes % 53.2 % (15.3-44.8); MPV 9.8 fL (7.6-11.3); RBC Red Blood Cell Count 3.89 M/uL (3.86-4.86)
[2019-08-11 13:14] LABS: ALT/SGPT 32 U/L (12-78); AST/SGOT 68 U/L (15-37); Albumin 2.4 g/dL (3.4-5.0); Alkaline Phosphatase 266 U/L (45-117); BUN Blood Urea Nitrogen 7 mg/dL (7-18); Bicarbonate 33 mmol/L (21-32); Bilirubin Direct 1.4 mg/dL (0-0.2); Glucose Level 147 mg/dL (74-106); Magnesium 1.8 mg/dL (1.8-2.4); NT PRO-BNP 405 pg/mL (<450); Protein, Total 6.2 g/dL (6.4-8.2); Sodium Level 140 mmol/L (136-145); Troponin (Emerg Dept Use Only) < 0.02 ng/mL (0.0-0.045)
[2019-08-11 14:10] LABS: Blood Morphology Comment NOTED (NOT SEEN); Macrocytosis 1+; Platelet Estimate DECR; Urine White Blood Cell Casts OK
[2019-08-11] MEDS ORDERED: POTASSIUM CL SA 10 MEQ TAB PO ONE (14:29)
[2019-08-11] MEDS ORDERED: ACETAMINOPHEN 500 MG TAB ONE (16:09)
[2019-08-11] MEDS ORDERED: ALBUTEROL 2.5 MG/3 ML NEB SOL NEB PRN (17:44)
[2019-08-11] MEDS ORDERED: ONDANSETRON 4 MG/2 ML VIAL IV PRN (17:44)
--- NOTE | 2019-08-11 17:53 | P.HP ---
Certification for Inpatient Patient admitted to: Inpatient With expected LOS: >2 Midnights Patient will require the following post-hospital care: Home Health Services Practitioner: I am a practitioner with admitting privileges, knowledge of patient current condition, hospital course, and medical plan of care. Services: Services provided to patient in accordance with Admission requirements found in Title 42 Section 412.3 of the Code of Federal Regulations Patient History Date of Service: 08/11/19 Reason for admission: GENERALIZED WEAKNESS, swelling, pain in right breast History of Present Illness: 84-year-old female with past medical history of diabetes, hypertension, depression, CKD stage 3 brought to the ER with generalized weakness and anasarca which has been going on for the last few days which has been progressively worsening and was brought to the ER. Patient is a poor historian hence most of the history is obtained from the chart review and also talking to the family member who is at the bedside, the patient is bedridden since February last year. Patient has lot of pain in the back. She started having dysuria and hematuria as well, and noticed generalized swelling especially of the lower extremities and also swelling and tenderness over the right breast. She is also complaining of shortness of breath. Denies any fever or chills or no sick contacts Patient was assessed in the ER and was found to have generalized swelling along with tenderness over the right breast concerning for mastitis and was admitted for further management and workup. , Allergies codeine Allergy (Unverified 11/24/16 23:18) Unknown ketorolac Allergy (Unverified 11/24/16 23:18) Unknown Sulfa (Sulfonamide Antibiotics) Allergy (Unverified 11/24/16 23:18) Unknown Penicillins Allergy (Uncoded 11/24/16 23:18) Unknown - Past Medical/Surgical History -: Diabetes, hypertension, hyperlipidemia, depression, CKD Past Surgical History: Reviewed- Non-Contributory - Family History Family History: Reviewed- Non-Contributory - Social History Smoking Status: Never smoker Review of Systems is unable to be obtained Physical Examination - Vital Signs Temperature: 98.2 F Blood Pressure: 136/88 Pulse: 78 Respirations: 18 Pulse Ox (%): 96 - Physical Exam General: Alert, Mild distress, Obese HEENT: Atraumatic, Normocephalic Neck: Supple Respiratory: Diminished, Crackles/rales Cardiovascular: Normal pulses, Regular rate/rhythm, Edema Capillary refill: <2 Seconds Gastrointestinal: Soft and benign, W/out hepatosplenomegaly Musculoskeletal: Swelling, Erythema, Tenderness, Other (Right breast tenderness, erythema present) Integumentary: Tenderness/swelling, Erythema Neurological: Normal speech Lymphatics: No axilla or inguinal lymphadenopathy Rectal: Deferred - Studies Laboratory Data (last 24 hrs) 08/11/19 12:33: WBC 5.6, Hgb 13.7, Hct 41.4, Plt Count 91 L 08/11/19 12:33: Sodium 140, Potassium 3.0 L, BUN 7, Creatinine 0.52 L, Glucose 147 H, Magnesium 1.8, Total Bilirubin 3.0 H, AST 68 H, ALT 32, Alkaline Phosphatase 266 H Assessment and Plan - Problems (Diagnosis) (1) Anasarca Current Visit: Yes Status: Acute (2) Acute mastitis of right breast Current Visit: Yes Status: Acute (3) Shortness of breath Current Visit: Yes Status: Acute (4) Diabetes Current Visit: Yes Status: Acute (5) Hypertension Current Visit: Yes Status: Acute (6) Elevated LFTs Current Visit: Yes Status: Acute - Plan Anasarca Acute mastitis of right breast Shortness of breath Possible pneumonia Caused by Gram positive cocci Elevated LFTs Diabetes Hypertension Hyperlipidemia Obesity Unable to ambulate Plan Will get a workup for anasarca Will get a CT of the chest and abdomen pelvis to rule out any etiology Get an echocardiogram Start on empirical antibiotics start on diuretics monitor volume status insulin sliding scale Hydralazine MA Oxygen support may need a ultrasound of the breast if CT is nonconclusive May need surgical consult GI/DVT prophylaxis Advanced directive DNR DNI - Advance Directives Does patient have a Living Will: No Does patient have a Durable POA for Healthcare: No Time Spent Managing Pts Care (In Minutes): 45
[2019-08-11] MEDS ORDERED: AZTREONAM 1 GM/VIAL IV SCH (18:00)
[2019-08-11 18:12] LABS: Urine Blood 2+ (NEG); Urine Glucose NEGATIVE (NEG); Urine Protein NEGATIVE (NEG); Urine Specific Gravity 1.025 (1.005-1.030); Urine pH 5.5 (5.0-7.0)
--- NOTE | 2019-08-11 18:51 | RAD REPORT ---
EXAM DESCRIPTION: CT - Chest Abdomen Pelvis W Cont - 08/11/2019 6:33 pm CLINICAL HISTORY: Breast Mass, anasarca COMPARISON: No comparisonsStone Protocol dated 03/05/2019 TECHNIQUE: Following dynamic enhancement using 100 milliliters nonionic IV contrast, axial imaging o f the chest, abdomen and pelvis was performed. Biphasic technique was utilized through the abdomen. No oral contrast administered. All CT scans are performed using dose optimization technique as appropriate and may include automated exposure control or mA/KV adjustment according to patient size. FINDINGS: No new or enlarging mass or infiltrate of the lung parenchyma. Small left-sided pleural ef fusion is present. No pleural based mass or pneumothorax. No significant aortic or pulmonary arterial tree finding. Mediastinal and hilar regions show no mass or abnormal lymphadenopathy. No chest wall mass or axillary lymphadenopathy. Edema changes are present in the bilateral breast tissues and exten sively in the soft tissues along the lateral left chest. Prominent nodular pattern to the liver capsule. No focal liver lesion identifiable. Portal vein is pa tent. Prominent spleen with numerous upper abdominal varices. No acute pancreatic process seen. Pancr eatic atrophy is present. Stones or sludge present in the gallbladder. No biliary tree dilatation. Re nal function is symmetric. There is a large rim calcified 6 centimeter hypodense mass in the mid and upper pole of the right kidney unchanged from comparison. No adrenal abnormalities. No dilated bowel loops or focal bowel wall thickening. Diverticulosis is present without diverticulit is. No acute GI process seen. No free air or pneumatosis. A small amount of ascites present. There is significant fluid retention i n the subcutaneous fatty tissues of the abdomen and pelvis. Extensive bony degenerative change present. There are numerous compression fracture deformities in th e mid and lower thoracic spine. New or progressive compression fracture deformities involve the T10- L3 bodies and the L5 body since February 2019. No lytic or blastic component. No paraspinal mass comp onent seen. No significant vascular findings. IMPRESSION: CT chest imaging shows a small left-sided pleural effusion. There is no new mass, lympha denopathy or other emergent CT chest finding. Anasarca seen in the soft tissues. Cirrhotic liver changes with no focal liver lesion identifiable. Significant progression of multiple thoracic and lumbar compression fractures since February 2019. Willian barrios has breast malignancy history but there are no clearly pathologic changes to these compression fractures. Significant anasarca in the abdominal and pelvic soft tissues.
[2019-08-11] MEDS: FUROSEMIDE 40 MG/4 ML VIAL IV SCH ×2 (19:00→21:09)
[2019-08-11] MEDS: AZTREONAM 1 GM in NA CHLORIDE 0.9% 50 ML IV SCH ×2 (19:00→23:36)
[2019-08-11] MEDS ORDERED: LIDOCAINE 4% PATCH ONE (19:33)
[2019-08-11] MEDS: VANCOMYCIN 1 GM in NA CHLORIDE 0.9% 500 ML IVPB SCH ×2 (20:00→21:27)
[2019-08-11 20:40] VITALS: BMI 37.8
[2019-08-11] MEDS ORDERED: VANCOMYCIN 1 GM/VIAL ONE (21:22)
[2019-08-11] MEDS ORDERED: AZTREONAM 1 GM/VIAL ONE (21:22)
[2019-08-11] MEDS: INSULIN -REGULAR HUMAN 50 UNIT/0.5 ML ML SQ SCH (21:28)
[2019-08-11] MEDS ORDERED: NA CHLORIDE 0.9% 250 ML ONE (21:30)
[2019-08-11] MEDS ORDERED: NA CHLORIDE 0.9% 100 ML ONE (21:31)
[2019-08-12] MEDS: FUROSEMIDE 40 MG/4 ML VIAL IV SCH ×3 (00:54→16:45)
[2019-08-12 02:04] LABS: Urine Appearance CLEAR; Urine Bilirubin NEGATIVE (NEG); Urine Blood 2+ (NEG); Urine Color YELLOW; Urine Glucose NEGATIVE (NEG); Urine Protein NEGATIVE (NEG); Urine pH 7.5 (5.0-7.0)
[2019-08-12 02:12] LABS: Urine Microscopic Reflex ORDER UMIC
[2019-08-12 02:54] LABS: Calcium Oxalate Crystals- Ur FEW (NONE SEEN); Urine Bacteria <20 /HPF (<20); Urine Culture Reflex Order NOT NEEDED; Urine RBC 20-50 /HPF (NONE SEEN)
[2019-08-12] MEDS ORDERED: FUROSEMIDE 40 MG/4 ML VIAL IV SCH (05:00)
[2019-08-12 05:45] LABS: Absolute Lymphocytes (CBC) 2.6 K/uL (0.7-4.9); Basophils % 0.4 % (0-1.3); Hematocrit 37.6 % (36.0-45.0); MPV 9.7 fL (7.6-11.3); RBC Red Blood Cell Count 3.57 M/uL (3.86-4.86)
[2019-08-12 06:15] LABS: ALT/SGPT 22 U/L (12-78); AST/SGOT 54 U/L (15-37); Albumin 2.1 g/dL (3.4-5.0); Alkaline Phosphatase 216 U/L (45-117); BUN Blood Urea Nitrogen 7 mg/dL (7-18); Bicarbonate 32 mmol/L (21-32); Bilirubin Total 3.3 mg/dL (0.2-1.0); Glucose Level 115 mg/dL (74-106); Magnesium 1.8 mg/dL (1.8-2.4); Phosphorus 3.1 mg/dL (2.5-4.9); Protein, Total 5.5 g/dL (6.4-8.2); Sodium Level 144 mmol/L (136-145)
[2019-08-12 06:19] LABS: Potassium 2.9 mmol/L (3.5-5.1)
[2019-08-12] MEDS ORDERED: NA CHLORIDE 0.9% 0 ML ONE (06:39)
[2019-08-12] MEDS ORDERED: NA CHLORIDE 0.9% 500 ML ONE (06:40)
[2019-08-12 06:50] LABS: Anisocytosis 1+; Blood Morphology Comment NOTED (NOT SEEN); Macrocytosis 1+; Platelet Estimate DECR; Urine White Blood Cell Casts OK
[2019-08-12] MEDS: INSULIN -REGULAR HUMAN 50 UNIT/0.5 ML ML SQ SCH ×4 (07:30→21:00)
[2019-08-12] MEDS: VANCOMYCIN 1 GM in NA CHLORIDE 0.9% 500 ML IVPB SCH (08:00)
[2019-08-12] MEDS ORDERED: KCL 20 MEQ/100 mL IVPB 20 MEQ/100 ML BAG IV SCH ×2 (08:00)
[2019-08-12] MEDS ORDERED: D50W 25 GM/50 ML SYRINGE/VIAL IV PRN (08:34)
[2019-08-12] MEDS ORDERED: FLUTICASONE 50MCG NASAL SPRAY NAS PRN (08:34)
[2019-08-12] MEDS ORDERED: GLUCAGON 1 MG/VIAL IM PRN (08:34)
[2019-08-12] MEDS ORDERED: MAGNESIUM SULFATE 1 gm IVPB 1 GM/100 ML BAG IV ONE (09:00)
[2019-08-12] MEDS ORDERED: POTASSIUM CL SA 10 MEQ TAB PO SCH (09:00)
[2019-08-12] MEDS ORDERED: POTASSIUM CL SA 10 MEQ TAB PO ONE ×2 (09:00→21:00)
[2019-08-12] MEDS ORDERED: HOME MED 1 EA UNK (Omeprazole Magnesium [Prilosec Otc] 20 MG) PO SCH (09:00)
[2019-08-12] MEDS: AZTREONAM 1 GM in NA CHLORIDE 0.9% 50 ML IV SCH ×2 (09:15→16:41)
[2019-08-12] MEDS: carvediloL 6.25 MG TAB PO SCH ×2 (09:17→21:18)
[2019-08-12] MEDS: PANTOPRAZOLE 40MG TABLET PO SCH ×2 (09:18→21:18)
[2019-08-12] MEDS: ACETAMINOPHEN 500 MG TAB PO PRN (09:30)
[2019-08-12] MEDS: SPIRONOLACTONE 25 MG TABLET PO SCH (11:05)
[2019-08-12] MEDS: VANCOMYCIN 1.5 GM in NA CHLORIDE 0.9% 500 ML IVPB SCH ×2 (11:06→23:20)
--- NOTE | 2019-08-12 12:13 | PN ---
Date of Progress Note: 08/12/2019 Subjective: Patient is seen and examined. Chart reviewed and case discussed with RN and Dr. Cuevas. Patient does report some pain in the right breast. She will be seen by Surgery today. No fevers overnight. Medications: List reviewed. Code Status: Do not resuscitate. Physical Examination: Vital Signs: Temperature 97.7, heart rate 102, blood pressure 120/63, respirations 18, O2 of 92% on room air. General: Awake, alert, oriented x3. Elderly female, obese. BMI 37. CV: S1, S2. Sinus tachycardia. Peripheral pulses present. Respiratory: Somewhat diminished breath sounds at the bases. No wheezing or stridor. No use of accessory muscles. Gastrointestinal: Abdomen is soft, mildly distended. No tenderness. Positive bowel sounds. Extremities: No clubbing, cyanosis. Patient has peripheral edema. Neuro: Cranial nerves 2 through 12 intact grossly. No focal neurological deficits. Speech is normal. Breast: Right breast, somewhat erythematous, tender to palpation. No nodules noted. Left breast within normal limits. No drainage. Laboratory Data: Sodium 144, potassium 2.9, chloride 105, CO2 of 32, BUN 7, creatinine 0.41, glucose 115, calcium 7.4, phosphorus 3.1, magnesium 1.8. AST 54, ALT 22, alkaline phosphatase 216, albumin 2.1. WBC 4.7, H and H of 12.9 and 37.6, platelets 74, neutrophils 32%. Blood cultures pending. CT chest, abdomen, and pelvis shows small left-sided pleural effusion. No new mass, lymphadenopathy, or emergent CT chest finding. Anasarca seen in the soft tissues. Cirrhotic liver changes with no focal liver lesion identifiable. Significant progression of multiple thoracic and lumbar compression fracture since February 2019. Significant anasarca in the abdominal and pelvic soft tissues. Assessment: 84-year-old female with: 1. Acute mastitis of the right breast. We will continue on IV antibiotics. We will consult Surgery. Infectious Disease has been consulted. We will follow up on blood cultures. Patient still having some tenderness. No drainage. Unknown when the patient's last mammogram was. 2. Acute shortness of breath, likely related to anasarca and pleural effusion, not requiring supplemental oxygen. 3. Anasarca. Patient has liver cirrhosis. We will start on diuretics IV and monitor I's and O's, free fluid restriction. 4. Cirrhosis of the liver. Unclear etiology. Patient will need to follow up with GI or hepatology as an outpatient. 5. Hypokalemia. We will replace and monitor likely secondary to Lasix. 6. Multiple compression fractures in thoracic and lumbar spine worse from February 2019. Will consult Neurology. Obtain MRI thoracic and lumbar spine. This may be related to her history of breast cancer. 7. Elevated LFTs, likely secondary to her liver cirrhosis. 8. Diabetes mellitus type 2, [id number] with hyperglycemia. Continue with sliding scale insulin. Monitor blood glucose levels. 9. History of chronic kidney disease. Creatinine currently at baseline. GFR is greater than 90. Has history of stage 3 kidney disease. 10. Essential hypertension, stable. 11. Deep venous thrombosis prophylaxis, SCDs. No chemical anticoagulation due to patient's low platelets, likely related to her liver dysfunction. Plan: We will continue to monitor closely and continue diuresis. Follow up with surgical recommendations regarding right breast mastitis. Pain control for compression fractures. /JANEY Voice ID: [id number] Report ID: [id number] ERWIN
[2019-08-12] MEDS ORDERED: HYDROCODONE/APAP 7.5/325 MG TAB PO PRN (13:06)
--- NOTE | 2019-08-12 13:36 | ECHO ---
HEIGHT: 5 ft 1 in WEIGHT: 200 lb 0 oz DATE OF STUDY: 08/12/[address]: Rodriguez Stone DO 2-DIMENSIONAL: YES M.MODE: YES DOPPLER: YES COLOR FLOW: YES TDS: NO PORTABLE: NO DEFINITY: NO BUBBLE STUDY: NO DIAGNOSIS: SHORTNESS OF BREATH CARDIAC HISTORY: CATHERIZATION: NO SURGERY: NO PROSTHETIC VALVE: NO PACEMAKER: NO MEASUREMENTS (cm) DIASTOLIC (NORMALS) SYSTOLIC (NORMALS) IVSd 1.4 (0.6-1.2) LA Diam 4.9 (1.9-4.0) LVEF 66% LVIDd 4.0 (3.5-5.7) LVIDs 2.5 (2.0-3.5) %FS 36% LVPWd 1.2 (0.6-1.2) Ao Diam 2.3 (2.0-3.7) 2 DIMENSIONAL ASSESSMENT: RIGHT ATRIUM: NOMRAL LEFT ATRIUM: ENLARGED RIGHT VENTRICLE: NORMAL LEFT VENTRICLE: LEFT VENTRICULAR HYPERTROPHY - MILD TRICUSPID VALVE: NORMAL MITRAL VALVE: MITRAL ANNULAR CALCIFICATION, MILD MITRAL REGURGITATION PULMONIC VALVE: NORMAL AORTIC VALVE: CALCIFIED AORTIC VALVE PERICARDIAL EFFUSION: NONE AORTIC ROOT: MILD AORTIC INSUFFICIENCY, NO AORTIC STENOSIS. LEFT VENTRICULAR WALL MOTION: NORMAL. DOPPLER/COLOR FLOW: SEE ABOVE. COMMENTS: NORMAL LEFT VENTRICULAR EJECTION FRACTION 55-60%, NORMAL WALL MOTION, MILD LEFT VENTRICULAR HYPERTROPHY. DIASTOLIC DYSFUNCTION. AT LEAST MODERATE PULMONARY HYPERTENSION WITH RIGHT VENTRICULAR SYSTOLIC PRESSURE GREATER THAN 59mmHg. MILD AORTIC INSUFFICIENCY, MITRAL REGURGITATION, NO AORTIC STENOSIS. TECHNOLOGIST: BRENT LAYTON
[2019-08-12] MEDS ORDERED: LORAZEPAM 1 MG TABLET PO ONE (15:00)
--- NOTE | 2019-08-12 15:18 | P.CNS ---
Date of Consult: 08/12/19 Subjective: The patient is a 51-year-old female who presents and generalized weakness, anasarca, hematuria and swelling/tenderness over the right breast. Patient is suspected to have mastitis which I have been consulted for. Patient examined at bedside. Patient was seen by PCP and was diagnosed with UTI and finished a 10 day course of Ciprofloxacin. Patient still with some hematuria. Denies nausea, vomiting, diarrhea, chest pain, fevers and shortness of breath. Past medical/Surgical history: Diabetes, hypertension, hyperlipidemia, depression, CKD Family History: noncontributory Social history: Denies tobacco and alcohol use Allergies: Sulfa, PCN Active Medications Acetaminophen (Tylenol -Extra Strength) 500 mg PO Q4HP PRN PRN Reason: TEMP > 100' F Stop: 09/10/19 17:45 Last Admin: 08/12/19 09:30 Dose: 500 mg Documented by: Albuterol Sulfate (Proventil 0.083% Neb Soln) 2.5 mg NEB [id number] PRN PRN Reason: SHORTNESS OF BREATH Stop: 09/10/19 17:45 Carvedilol (Coreg) 6.25 mg PO BID MYLA Stop: 09/11/19 09:01 Last Admin: 08/12/19 09:17 Dose: 6.25 mg Documented by: Dextrose (Dextrose 50% Syringe/Vial) 12.5 gm IV PRN PRN; Protocol PRN Reason: HYPOGLYCEMIA Stop: 09/11/19 08:35 Fluticasone Propionate (Flonase 50mcg Nasal Belk) 1 sprays PANFILO BID PRN PRN Reason: ALLERGIES Stop: 09/11/19 08:35 Furosemide (Lasix) 40 mg IV Q8HR MYLA Stop: 09/11/19 01:01 Last Admin: 08/12/19 09:18 Dose: 40 mg Documented by: Glucagon (Glucagen) 1 mg IM 1X PRN; Protocol PRN Reason: HYPOGLYCEMIA Stop: 09/11/19 08:35 Aztreonam 1 gm/ Sodium (Chloride) 50 mls @ 100 mls/hr IV Q8HR MYLA Stop: 09/10/19 19:01 Last Admin: 08/12/19 09:15 Dose: 50 mls Documented by: Vancomycin HCl 1.5 gm/ Sodium (Chloride) 500 mls @ 250 mls/hr IVPB Q12H MYLA; Protocol Stop: 09/11/19 11:01 Last Admin: 08/12/19 11:06 Dose: 500 mls Documented by: Insulin Glargine (Lantus) 22 units SQ BEDTIME MYLA Stop: 09/11/19 21:01 Insulin Human Regular (Novolin -R) 0 unit SQ ACHS [facility]; Protocol Stop: 09/10/19 21:01 Last Admin: 08/12/19 11:05 Dose: 3 unit Documented by: Ondansetron HCl (Zofran) 4 mg IV Q6HP PRN PRN Reason: NAUSEA / VOMITING Stop: 09/10/19 17:45 Pantoprazole Sodium (Protonix Tab) 40 mg PO BID [facility] Stop: 09/11/19 09:01 Last Admin: 08/12/19 09:18 Dose: 40 mg Documented by: Potassium Chloride (Klor-Con 10 Meq Tab) 20 meq PO 1X ONE Stop: 08/12/19 21:01 Sodium Chloride (Normal Saline Flush) 10 ml IV BID [facility] Stop: 09/10/19 21:01 Last Admin: 08/12/19 09:32 Dose: 10 ml Documented by: Spironolactone (Aldactone) 25 mg PO DAILY [facility] Stop: 09/11/19 10:48 Last Admin: 08/12/19 11:05 Dose: 25 mg Documented by: Tramadol HCl (Ultram) 50 mg PO Q6H PRN PRN Reason: Pain scale 5-7 (Moderate) Stop: 09/10/19 18:01 ROS: CV: Denies chest pain RESP: denies shortness of breath, cough : Denies dysuria, reports some hematuria in brief GI: Denies nausea, diarrhea Extremities: Reports swelling to bilateral lower extremities Skin: Reports right breast swelling and tenderness Objective: Temp Pulse Resp BP Pulse Ox 97.6 F 86 18 131/58 L 93 08/12/19 12:00 08/12/19 12:00 08/12/19 12:00 08/12/19 12:00 08/12/19 12:00 Labs: Na 144, K 2.9, BUN , Creat 0.41, Albumin 2.1, WBC 4.7, PLT 74 Chest x-ray 08/10: EXAM DESCRIPTION: TERRYMonica Single View08/11/2019 12:29 pm CLINICAL HISTORY: Shortness of breath COMPARISON: 2018 FINDINGS: Left base is hazy. Right lung appears clear of acute infiltrate. The heart is enlarged IMPRESSION: Left base is hazy. This could be secondary to atelectasis, pneumonia or pleural effusion Chest/Abd/Pelvis CT 08/10: EXAM DESCRIPTION: CT - Chest Abdomen Pelvis W Cont - 08/11/2019 6:33 pm CLINICAL HISTORY: Breast Mass, anasarca COMPARISON: No comparisonsStone Protocol dated 03/05/2019 TECHNIQUE: Following dynamic enhancement using 100 milliliters nonionic IV contrast, axial imaging of the chest, abdomen and pelvis was performed. Biphasic technique was utilized through the abdomen. No oral contrast administered. All CT scans are performed using dose optimization technique as appropriate and may include automated exposure control or mA/KV adjustment according to patient size. FINDINGS: No new or enlarging mass or infiltrate of the lung parenchyma. Small left-sided pleural effusion is present. No pleural based mass or pneumothorax. No significant aortic or pulmonary arterial tree finding. Mediastinal and hilar regions show no mass or abnormal lymphadenopathy. No chest wall mass or axillary lymphadenopathy. Edema changes are present in the bilateral breast tissues and extensively in the soft tissues along the lateral left chest. Prominent nodular pattern to the liver capsule. No focal liver lesion identifiable. Portal vein is patent. Prominent spleen with numerous upper abdominal varices. No acute pancreatic process seen. Pancreatic atrophy is present. Stones or sludge present in the gallbladder. No biliary tree dilatation. Renal function is symmetric. There is a large rim calcified 6 centimeter hypodense mass in the mid and upper pole of the right kidney unchanged from comparison. No adrenal abnormalities. No dilated bowel loops or focal bowel wall thickening. Diverticulosis is present without diverticulitis. No acute GI process seen. No free air or pneumatosis. A small amount of ascites present. There is significant fluid retention in the subcutaneous fatty tissues of the abdomen and pelvis. Extensive bony degenerative change present. There are numerous compression fracture deformities in the mid and lower thoracic spine. New or progressive compression fracture deformities involve the T10- L3 bodies and the L5 body since February 2019. No lytic or blastic component. No paraspinal mass component seen. No significant vascular findings. IMPRESSION: CT chest imaging shows a small left-sided pleural effusion. There is no new mass, lymphadenopathy or other emergent CT chest finding. Anasarca seen in the soft tissues. Cirrhotic liver changes with no focal liver lesion identifiable. Significant progression of multiple thoracic and lumbar compression fractures since February 2019. Patient has breast malignancy history but there are no clearly pathologic changes to these compression fractures. Significant anasarca in the abdominal and pelvic soft tissues. ROS: General: Awake, alert, agitated CV: S1,S2 RESP: Diminished breath sounds Abd: Round, nontender, bowel sounds present Extremities: Anasarca Skin: Right breast with swelling and hardness, no erythema or warmth, no drainage Assessment and plan: Diabetes mellitus, will order A1C Thrombocytopenia likely due to liver cirrhosis Protein calorie malnourished Right breast mastitis Blood cultures pending Currently on Aztreonam and Vancomycin, continue until blood cultures result Will need total of 2 weeks of antibiotics Will continue to monitor Thank you for consult Patient discussed with Dr. Raphael
[2019-08-12] MEDS: TRAMADOL HCL 50 MG TAB PO PRN (16:41)
--- NOTE | 2019-08-12 19:28 | CON ---
Date of Consultation: 08/12/2019 Diagnosis: Right breast mastitis. History Of Present Illness: This is the case of an 84-year-old patient with multiple medical problem s, admitted here for multiple medical conditions, but one of them is also inflammation of the right b reast. The patient does not give much information, but the patient's daughter is present and she eliza d us that they have no family history of breast cancer. This just happen in 24 hours and she did not feel any masses before. She does not remember her last mammogram, but obviously the lady now is not going to allow any mammogram to be done right now because of the tenderness. She does not remember any trauma in that region, does not remember any rash or any bloody nipple discharge. Allergies: INCLUDE CODEINE, KETOROLAC, SULFA, PENICILLIN. Past Medical History: Diabetes, hypertension, hyperlipidemia, depression. Family History: No family history of breast cancer. Physical Examination: General: Patient is awake and alert. No distress. HEENT: Pupils anicteric. Chest: Clear. Abdomen: Soft and depressible. No guarding or rebound. Breasts: Over the right breast, patient has area of inflammation with swelling mainly periareolar an d to the left of the areola. There is no fluctuance present, although it shows an area of inflammati on and erythema. No ulcers present. No nipple inversion. Laboratory Data: Blood work reviewed. Imaging: CAT scan done of the chest, but even though they see the inflammation of the breast, they d id not see any fluid collection in that area. Assessment: Right breast mastitis, unknown etiology. Plan: I explained to the family that the etiology may be from just a simple infection to even inflam matory breast cancer. It is hard to see at this time due to the fact that it just started in few gama rs, give us the area that hopefully just an infection in that area, although does not show any fluctu ance right now. It may be in the next few hours in the next few days and if that is the case, then I may have to do an I and D, and probably I take advantage of that and do a biopsy. We are trying to get an ultrasound tomorrow. She is having some studies done today and she is not comfortable going b ack and forward, but over the weekend, we can get an ultrasound that may help us to see if there is a ny fluid collection that I have to drain. After all this is over even if she get better, it is impor tant she gets her mammograms done. We will follow the patient with you and give more recommendations as the case develops. [place] Voice ID: [id number] Report ID: [id number]
--- NOTE | 2019-08-12 20:28 | CON ---
Reason For Consultation: Consultation called because of multiple thoracic and lumbar vertebral fract ures. History Of Present Illness: Ms. Jarquin is an 84-year-old patient with diabetes, hypertension, depress ion, stage 3 kidney disease, who has been nonambulatory for the last 7 months. Per the patient's ana laura ghter was at bedside. She developed some worsening weakness and pain when moving from a lying to sit ting position and when transferring in addition to swelling in the right breast and swelling in the l eft shoulder and left elbow. The patient denies any drainage from the left breast, but noted as a [address] mass that was identified in the left breast region that was somewhat tender to touch. She was see n in Dr. Moya's office, reported diagnosis of mastitis, was given antibiotics for several days. Her symptoms did not improve when she came to [facility]. Her imaging which is CT scan of t he abdomen and pelvis identified extensive bony degenerative changes and numerous compression deformi ties in the mid and lower thoracic spine. They involve T10-L3 and the L5 bodies and they were found to be new or progressive since February 2019; however, there was found to be no lytic or blastic comp onents with the findings. There is a question of breast malignancy, but when the patient's daughter was asked about this, she denies a history of breast malignancy. Patient herself also denies a histo ry of breast malignancy. She also has anasarca likely related to chronic liver failure. Past Medical History: As indicated including diabetes mellitus. Allergies: CODEINE, KETOROLAC, SULFA, PENICILLIN. Family History: Noncontributory. Social History: No alcohol, tobacco, or IV drug use. Review of Systems: To the patient and daughter, she has had diffuse back pain for 2 months. Right breast pain and swell ing, left arm swelling and pain and diffuse weakness, but no fevers or cough and no diarrhea. No fra nk dysuria, although she had some hematuria. Physical Examination: Vital Signs: Blood pressure 131/58, pulse 86, respiratory rate 16, temperature 97.6, oxygen saturati on 93% on room air. Weight 200 pounds. Height 5 feet 1 inch, BMI 37.8. General: Ms. Jarquin is resting in bed. HEENT: She is normocephalic, atraumatic. Sclerae anicteric. Oropharynx is moist. Neck: Supple. Chest: Clear. She does have pain on palpation of the back. She has mild edema in the lower extremi ties and she does have some swelling in the right breast area, possibly an appearance of an orange in the texture of her skin of the breast on the right. Abdomen: Soft. Extremities: Show trace edema. Neurologic: She does follow simple commands and she is although in bed, arouse easily and has no foc al cranial nerve, motor, coordination, or sensory deficits. Laboratory Studies: Complete blood count with differential shows MCV is elevated to 106.5, platelets low at 74, neutrophils low at 32.5 with WBCs normal at 4.7. Chemistries show potassium was down to 2.9 earlier today, now corrected to 3.9. Glucose range 115 to 189. Calcium low at 7.4. AST 54, ALT 22, alkaline phosphatase 216. Total bilirubin 3.3, magnesium normal at 1.8. Urinalysis shows 5 to 10 epithelial cells, 20 to 50 red blood cells, 2+ blood, but negative esterase and negative nitrites, and vancomycin level is less than 0.8. Echocardiogram shows normal left ventricular ejection fracti on of 55% to 60%. Mild left ventricular hypertrophy, diastolic dysfunction. Moderate pulmonary hype rtension. Right ventricular systolic pressure greater than 59. Mild aortic insufficiency. Mitral r egurgitation with no aortic stenosis. Her chest x-ray shows the left base is hazy, likely possible d ue to atelectasis, however, pneumonia or pleural effusion also should be included in consideration. Assessment: Ms. Jarquin is an 84-year-old patient with multiple thoracic and lumbar fractures without trauma who has right breast mass and swelling in the left shoulder and arm and has not been ruled out for possible breast cancer or metastases to involve the bony regions. However, the scan does not watts ggest a lytic component to the lesions or fractures in the vertebra. Plan: 1.We will obtain MRI of the thoracic and lumbar MRI. 2.We have a bone scan done. 3.She may have a pain patch applied to the back as needed, although she denies any significant pain unless being transferred. 4.Patient is at a do not resuscitate status and may have to reconsider any aggressive workup if she is not planning on doing any interventional procedures. 5.May continue DVT prophylaxis, but potentially heparin 5000 international units twice daily. Kirstie nue with aggressive management of diabetes mellitus, hypertension, and dyslipidemia. LB/MODNahid Voice ID: [id number] Report ID: [id number]
[2019-08-12] MEDS: INSULIN GLARGINE 100 UNITS/ML SQ SCH (21:19)
[2019-08-13] MEDS: TRAMADOL HCL 50 MG TAB PO PRN ×4 (00:39→22:48)
[2019-08-13] MEDS: AZTREONAM 1 GM in NA CHLORIDE 0.9% 50 ML IV SCH ×3 (00:41→16:03)
[2019-08-13] MEDS: FUROSEMIDE 40 MG/4 ML VIAL IV SCH ×3 (00:41→16:06)
[2019-08-13 05:51] LABS: BUN Blood Urea Nitrogen 7 mg/dL (7-18); Bicarbonate 28 mmol/L (21-32); Glucose Level 109 mg/dL (74-106); Magnesium 1.9 mg/dL (1.8-2.4); Potassium 3.7 mmol/L (3.5-5.1); Sodium Level 142 mmol/L (136-145)
[2019-08-13 05:58] LABS: Absolute Lymphocytes (CBC) 3.3 K/uL (0.7-4.9); Basophils % 0.6 % (0-1.3); Hematocrit 38.4 % (36.0-45.0); Lymphocytes % 56.9 % (15.3-44.8); MPV 9.3 fL (7.6-11.3); RBC Red Blood Cell Count 3.64 M/uL (3.86-4.86)
[2019-08-13] MEDS: INSULIN -REGULAR HUMAN 50 UNIT/0.5 ML ML SQ SCH ×4 (07:30→20:21)
[2019-08-13] MEDS: SPIRONOLACTONE 25 MG TABLET PO SCH (08:43)
[2019-08-13] MEDS: PANTOPRAZOLE 40MG TABLET PO SCH ×2 (08:44→20:21)
[2019-08-13] MEDS: carvediloL 6.25 MG TAB PO SCH ×2 (08:44→20:21)
[2019-08-13] MEDS ORDERED: POTASSIUM CL SA 10 MEQ TAB PO ONE (09:00)
--- NOTE | 2019-08-13 11:01 | P.PN ---
Subjective Date of Service: 08/13/19 Chief Complaint: GENERALIZED WEAKNESS, swelling, pain in right breast Subjective: No new changes, Other (Still having pain especially on the back and right shoulder) Review of Systems 10-point ROS is otherwise unremarkable Physical Examination - Vital Signs Temperature: 97.1 F Blood Pressure: 116/70 Pulse: 105 Respirations: 18 Pulse Ox (%): 91 - Physical Exam General: Alert, In no apparent distress, Obese HEENT: Atraumatic, Normocephalic Neck: Supple Respiratory: Clear to auscultation bilaterally, Normal air movement Cardiovascular: Regular rate/rhythm, Normal S1 S2 Capillary refill: <2 Seconds Gastrointestinal: Soft and benign, W/out hepatosplenomegaly Musculoskeletal: Tenderness, Other ( tenderness in the back, right shoulder, decreased range of motion, ) Integumentary: No rashes, No breakdown Neurological: Normal speech, Normal strength at 5/5 x4 extr Lymphatics: No axilla or inguinal lymphadenopathy Rectal: Deferred - Studies Laboratory Last Values WBC 5.6 K/uL (4.3-10.9) 08/11/19 12:33 RBC 3.89 M/uL (3.86-4.86) 08/11/19 12:33 Hgb 13.7 g/dL (12.0-15.0) 08/11/19 12:33 Hct 41.4 % (36.0-45.0) 08/11/19 12:33 MCV 106.5 fL (80-100) H D 08/11/19 12:33 MCH 35.3 pg (27.0-35.0) H 08/11/19 12:33 MCHC 33.2 g/dL (32.0-36.0) 08/11/19 12:33 RDW 16.8 % (12.1-15.2) H 08/11/19 12:33 Plt Count 91 K/uL (152-406) L 08/11/19 12:33 MPV 9.8 fL (7.6-11.3) 08/11/19 12:33 Neutrophils % 36.1 % (41.7-73.7) L 08/11/19 12:33 Lymphocytes % 53.2 % (15.3-44.8) H 08/11/19 12:33 Monocytes % 9.1 % (3.3-12.3) 08/11/19 12:33 Eosinophils % 0.9 % (0-4.4) 08/11/19 12:33 Basophils % 0.7 % (0-1.3) 08/11/19 12:33 Absolute Neutrophils 2.0 K/uL (1.8-8.0) 08/11/19 12:33 Absolute Lymphocytes 3.0 K/uL (0.7-4.9) 08/11/19 12:33 Absolute Monocytes 0.5 K/uL (0.1-1.3) 08/11/19 12:33 Absolute Eosinophils 0.1 K/uL (0-0.5) 08/11/19 12:33 Absolute Basophils 0.0 K/uL (0-0.5) 08/11/19 12:33 Macrocytosis 1+ 08/11/19 12:33 Morphology Comment Noted (NOT SEEN) 08/11/19 12:33 Sodium 140 mmol/L (136-145) 08/11/19 12:33 Potassium 3.0 mmol/L (3.5-5.1) L 08/11/19 12:33 Chloride 103 mmol/L (98-107) 08/11/19 12:33 Carbon Dioxide 33 mmol/L (21-32) H 08/11/19 12:33 BUN 7 mg/dL (7-18) 08/11/19 12:33 Creatinine 0.52 mg/dL (0.55-1.3) L 08/11/19 12:33 Estimated GFR > 90 mL/min (=/>90) 08/11/19 12:33 Glucose 147 mg/dL (74-106) H 08/11/19 12:33 Calcium 8.1 mg/dL (8.5-10.1) L 08/11/19 12:33 Magnesium 1.8 mg/dL (1.8-2.4) 08/11/19 12:33 Total Bilirubin 3.0 mg/dL (0.2-1.0) H 08/11/19 12:33 Direct Bilirubin 1.4 mg/dL (0-0.2) H 08/11/19 12:33 AST 68 U/L (15-37) H 08/11/19 12:33 ALT 32 U/L (12-78) 08/11/19 12:33 Alkaline Phosphatase 266 U/L (45-117) H 08/11/19 12:33 Rapid Troponin I < 0.02 ng/mL (0.0-0.045) 08/11/19 12:33 NT-Pro-B Natriuret Pep 405 pg/mL (<450) 08/11/19 12:33 Serum Total Protein 6.2 g/dL (6.4-8.2) L 08/11/19 12:33 Albumin 2.4 g/dL (3.4-5.0) L 08/11/19 12:33 Globulin 3.8 g/dL (2.3-3.5) H 08/11/19 12:33 Albumin/Globulin Ratio 0.6 (1.1-1.8) L 08/11/19 12:33 Urine pH 5.5 (5.0-7.0) 08/11/19 15:27 Ur Specific [place] 1.025 (1.005-1.030) 08/11/19 15:27 Glucose (UA)(Auto) Negative (NEG) 08/11/19 15:27 Urine Ketones Negative (NEG) 08/11/19 15:27 Urine Blood 2+ (NEG) H 08/11/19 15:27 Urine Nitrite Negative (NEG) 08/11/19 15:27 Ur Leukocyte Esterase Negative (NEG) 08/11/19 15:27 Urine Total Protein Negative (NEG) 08/11/19 15:27 Assessment & Plan - Problems (Diagnosis) (1) Anasarca Current Visit: Yes Status: Acute (2) Acute mastitis of right breast Current Visit: Yes Status: Acute (3) Shortness of breath Current Visit: Yes Status: Acute (4) Diabetes Current Visit: Yes Status: Acute (5) Hypertension Current Visit: Yes Status: Acute (6) Elevated LFTs Current Visit: Yes Status: Acute Physician Review Additional Text: 1. Acute mastitis of the right breast. continue on IV antibiotics. Appreciate surgical input Awaiting breast ultrasound, he may need a I& D if ultrasound shows the abscess pocket Infectious Disease has been consulted. Pain control 2. Acute shortness of breath, slightly better likely related to anasarca and pleural effusion, not requiring supplemental oxygen. 3. Anasarca. Possibly related to liver cirrhosis. on diuretics IV and monitor I's and O's, fluid restriction. 4. 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 Hypokalemia. Monitor electrolytes and replace according 6. Multiple compression fractures in thoracic and lumbar spine worse from February 2019. Neurology consult appreciated Ordered MRI thoracic and lumbar spine. This may be related to her history of breast cancer. Patient. could not do an MRI because she cannot lay down flat 7. Elevated LFTs, likely secondary to her liver cirrhosis. 8. Diabetes mellitus type 2, rph-[id number] with hyperglycemia. Continue with sliding scale insulin. Monitor blood glucose levels. 9. History of chronic kidney disease stage 3 . Monitor renal parameters 10. Essential hypertension, stable. Titrate antihypertensives 11. Deep venous thrombosis prophylaxis, SCDs. No chemical anticoagulation due to patient's low platelets, likely related to her liver dysfunction. Plan: Workup is still pending Follow up with surgical recommendations regarding right breast mastitis. Pain control for compression fractures. PT/ OT evaluation May need placement versus home health Time Spent Managing Pts Care (In Minutes): 36
[2019-08-13] MEDS: VANCOMYCIN 1.5 GM in NA CHLORIDE 0.9% 500 ML IVPB SCH ×2 (11:36→22:43)
[2019-08-13 12:19] LABS: Blood Morphology Comment NOTED (NOT SEEN); Macrocytosis 1+; Platelet Estimate DECR; Urine White Blood Cell Casts OK
--- NOTE | 2019-08-13 12:20 | RAD REPORT ---
EXAM DESCRIPTION: US - BREAST/AXILLA, COMPLETE - 08/13/2019 11:57 am CLINICAL HISTORY: mastitis, rule out mass Right-sided pain COMPARISON: Chest Abdomen Pelvis W Cont dated 08/11/2019 FINDINGS: Full right breast sonography was performed including all 4 quadrants and the retroareolar region. Skin thickening is noted with edematous appearance to the breast tissue. No focal mass appreciated.
--- NOTE | 2019-08-13 13:02 | EKG ---
Test Date: 2019-08-11 Test Time: 13:10:44 [employer]ker: CASTILLO MEASUREMENT RESULTS: Intervals: Rate: 79 ME: QRSD: 146 QT: 444 QTc: 509 [place]: P: ME: QRS: -23 T: 106 INTERPRETIVE STATEMENTS: Atrial fibrillation Left bundle branch block Abnormal ECG Compared to ECG 08/11/2019 13:10:00 No significant changes Electronically Signed On 08-13-19 13:01:32 CDT by Braydon Lim
--- NOTE | 2019-08-13 13:02 | EKG ---
Test Date: 2019-08-11 Test Time: 13:10:00 Electrolysis Engineer: CASTILLO MEASUREMENT RESULTS: Intervals: Rate: 85 DC: QRSD: 140 QT: 448 QTc: 533 [place]: P: DC: QRS: -22 T: 95 INTERPRETIVE STATEMENTS: Atrial fibrillationjavascript:perform('study_confirm'); Left bundle branch block Abnormal ECG Electronically Signed On 08-13-19 13:01:46 CDT by Braydon Lim
[2019-08-13] MEDS: INSULIN GLARGINE 100 UNITS/ML SQ SCH (20:20)
[2019-08-13] MEDS: ACETAMINOPHEN 500 MG TAB PO PRN (20:21)
[2019-08-14] MEDS: AZTREONAM 1 GM in NA CHLORIDE 0.9% 50 ML IV SCH ×3 (00:47→16:08)
[2019-08-14] MEDS: FUROSEMIDE 40 MG/4 ML VIAL IV SCH ×3 (00:50→16:10)
[2019-08-14] MEDS: ACETAMINOPHEN 500 MG TAB PO PRN ×2 (02:40→23:30)
[2019-08-14] MEDS: INSULIN -REGULAR HUMAN 50 UNIT/0.5 ML ML SQ SCH ×4 (07:30→21:06)
[2019-08-14] MEDS: TRAMADOL HCL 50 MG TAB PO PRN ×3 (08:39→20:23)
[2019-08-14] MEDS: SPIRONOLACTONE 25 MG TABLET PO SCH (08:40)
[2019-08-14] MEDS: PANTOPRAZOLE 40MG TABLET PO SCH ×2 (08:40→21:08)
[2019-08-14] MEDS: carvediloL 6.25 MG TAB PO SCH ×2 (08:40→21:08)
[2019-08-14] MEDS: VANCOMYCIN 1.5 GM in NA CHLORIDE 0.9% 500 ML IVPB SCH ×2 (11:39→22:31)
[2019-08-14] MEDS: LIDOCAINE 4% PATCH TOP SCH (11:40)
--- NOTE | 2019-08-14 13:21 | PN ---
Date of Progress Note: 08/14/2019 Patient seen and examined. Chart reviewed and case discussed with RN. Patient is still complaining of significant pain in the right shoulder and her back. She was unable to get the thoracic and lumba r MRI done due to inability to lie flat. Medications: List reviewed. Code Status: Do not resuscitate. Physical Examination: Vital Signs: Temperature 97.5, heart rate 81, blood pressure 126/66, respirations 18, O2 93% on room air. General: Awake, alert, oriented x3. Elderly female, in some mild distress. Obese, BMI 37. CV: S1, S2. Regular rate and rhythm. Peripheral pulses present. Respiratory: Diminished breath sounds at the bases. No wheezing or stridor. No use of accessory mu scles. Gastrointestinal: Abdomen is soft, nondistended. Positive bowel sounds. Nontender. Extremities: No clubbing or cyanosis. Patient has pedal edema. Neuro: Cranial nerves 3 through 12 intact grossly. No focal neurological deficit. Speech is normal . Patient is hard of hearing. Laboratory Data: Blood glucose level is 89. Blood cultures, no growth to date. Ultrasound of the b reast shows skin thickening with edematous appearance. No focal mass. Assessment: An 84-year-old female with: 1.Acute mastitis of the right breast. Continue with intravenous antibiotics. No surgical intervent ion at this time. Ultrasound is negative for abscess. Appreciate Infectious Disease input. 2.Acute hypoxia and shortness of breath, slightly better, likely due to anasarca and pleural effusio n, doing well on room air. 3.Anasarca related to liver cirrhosis. Continue diuretics. Monitor I's and O's. Continue fluid re striction. Patient has currently positive fluid balance, but is down from 200 to 199 pounds. We manny l need to follow up with Gastroenterology, Hepatology as an outpatient. 4.Hypokalemia. We will replace and monitor. Likely due to diuretics. 5.Multiple compression fractures in thoracic and lumbar spine, were from February 2019. MRI unable to be done due to patient's inability to lie flat. Patient does not have any history of breast cance r. No lytic bone lesions seen on CT. Appreciate Neurology input. Patient will likely need to follo w up with neurosurgeon, Dr. Vivar, as an outpatient for kyphoplasty due to continued pain. 6.Elevated LFTs secondary to liver cirrhosis. We will repeat CMP in a.m. 7.Diabetes mellitus type 2, [id number]-btrkwjvfs, with hyperglycemia. Continue sliding scale insul in. Monitor blood glucose levels. 8.History of chronic kidney disease stage 3. Kidney function is doing well. We will continue to mo nitor. Avoid nonsteroidal anti-inflammatory drugs. 9.Essential hypertension, stable. Continue home medications. 10.Deep venous thrombosis prophylaxis. Sequential compression devices. No chemical anticoagulation due to low platelets, currently at 69. 11.Intractable pain secondary to spine fractures. Plan: PT/OT eval, possible to discuss placement to fpc facility at this time. Family wi shes to continue with home PT. They already have Physical Therapy coming out at home. Daughter live s at home and is there all the time. They understand the patient has risk for falls. At this time, they want to go home once medically stable. We will discuss with Surgery, likely discharge in the ne xt 24 hours if continues to improve. /JANEY Voice ID: [id number] Report ID: [id number]
--- NOTE | 2019-08-14 19:48 | PN ---
Date of Progress Note: 08/14/2019 Diagnosis: Right breast mastitis. Subjective: Patient is doing better. No fever. Less tenderness. Review of Systems: Ten points otherwise unremarkable. Physical Examination: Right breast area is improving. Less erythema. Imaging Data: Ultrasound shows no fluid collection, although there is some swelling in that area. Plan: Basically continue the antibiotics. When this infection resolves, she is once again advised t o do a breast cancer workup that will include formal imaging with a mammogram. WILLOW/JANEY Voice ID: [id number] Report ID: [id number]
--- NOTE | 2019-08-14 20:21 | RAD REPORT ---
EXAM DESCRIPTION: US - Renal Ultrasound-Complete - 08/14/2019 8:02 pm CLINICAL HISTORY: . Abdominal pain COMPARISON: August 11, 2019 cat scan FINDINGS: The right kidney measures 12 cm with a normal echotexture. 5.6 centimeter peripherally erin cified mass unchanged from the CT scan. No blood flow is seen within the mass The left kidney measures 13 cm with a normal echotexture. 4 millimeter calculus mid pole left kidney. Hydronephrosis is not seen. No gross abnormality of bladder IMPRESSION: 5.6 centimeter peripherally calcified mass right kidney. 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
[2019-08-14] MEDS: INSULIN GLARGINE 100 UNITS/ML SQ SCH (21:06)
[2019-08-15] MEDS: AZTREONAM 1 GM in NA CHLORIDE 0.9% 50 ML IV SCH ×2 (00:44→08:46)
[2019-08-15] MEDS: FUROSEMIDE 40 MG/4 ML VIAL IV SCH ×2 (00:45→08:48)
[2019-08-15 06:03] LABS: Absolute Lymphocytes (CBC) 2.4 K/uL (0.7-4.9); Basophils % 0.7 % (0-1.3); Hematocrit 38.5 % (36.0-45.0); Lymphocytes % 48.9 % (15.3-44.8); MPV 9.6 fL (7.6-11.3); RBC Red Blood Cell Count 3.64 M/uL (3.86-4.86)
[2019-08-15 06:22] LABS: ALT/SGPT 18 U/L (12-78); AST/SGOT 41 U/L (15-37); Alkaline Phosphatase 204 U/L (45-117); BUN Blood Urea Nitrogen 6 mg/dL (7-18); Bicarbonate 32 mmol/L (21-32); Bilirubin Total 3.1 mg/dL (0.2-1.0); Glucose Level 106 mg/dL (74-106); Potassium 3.7 mmol/L (3.5-5.1); Protein, Total 5.4 g/dL (6.4-8.2); Sodium Level 142 mmol/L (136-145)
[2019-08-15] MEDS: TRAMADOL HCL 50 MG TAB PO PRN ×2 (06:45→14:31)
[2019-08-15] MEDS: INSULIN -REGULAR HUMAN 50 UNIT/0.5 ML ML SQ SCH ×2 (07:30→11:30)
[2019-08-15] MEDS: LIDOCAINE 4% PATCH TOP SCH (08:47)
[2019-08-15] MEDS: carvediloL 6.25 MG TAB PO SCH (08:48)
[2019-08-15] MEDS: PANTOPRAZOLE 40MG TABLET PO SCH (08:48)
[2019-08-15] MEDS: SPIRONOLACTONE 25 MG TABLET PO SCH (08:48)
[2019-08-15] MEDS ORDERED: POTASSIUM CL SA 10 MEQ TAB PO ONE (09:00)
[2019-08-15 09:46] VITALS: O2SAT 92
--- NOTE | 2019-08-15 09:53 | P.PN ---
Subjective Date of Service: 08/13/19 Chief Complaint: GENERALIZED WEAKNESS, swelling, pain in right breast Subjective: Improving Review of Systems General: Fever (no) Cardiovascular: Chest Pain (no) Physical Examination - Vital Signs Temperature: 97.4 F Blood Pressure: 145/69 Pulse: 89 Respirations: 18 Pulse Ox (%): 95 - Physical Exam General: Alert, In no apparent distress Neck: Supple Gastrointestinal: Soft and benign Integumentary: No cyanosis, Erythema (less erythema) - Studies Imagings Data: Ultrasound discussed with pt and orion Assessment And Plan - Plan cont abx oob PT orion fully explained the plan Physician Review Additional Text: 1. Acute mastitis of the right breast. continue on IV antibiotics. Appreciate surgical input Awaiting breast ultrasound, he may need a I& D if ultrasound shows the abscess pocket Infectious Disease has been consulted. Pain control 2. Acute shortness of breath, slightly better likely related to anasarca and pleural effusion, not requiring supplemental oxygen. 3. Anasarca. Possibly related to liver cirrhosis. on diuretics IV and monitor I's and O's, fluid restriction. 4. 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 Hypokalemia. Monitor electrolytes and replace according 6. Multiple compression fractures in thoracic and lumbar spine worse from February 2019. Neurology consult appreciated Ordered MRI thoracic and lumbar spine. This may be related to her history of breast cancer. Patient. could not do an MRI because she cannot lay down flat 7. Elevated LFTs, likely secondary to her liver cirrhosis. 8. Diabetes mellitus type 2, [id number]-[id number] with hyperglycemia. Continue with sliding scale insulin. Monitor blood glucose levels. 9. History of chronic kidney disease stage 3 . Monitor renal parameters 10. Essential hypertension, stable. Titrate antihypertensives 11. Deep venous thrombosis prophylaxis, SCDs. No chemical anticoagulation due to patient's low platelets, likely related to her liver dysfunction. Plan: Workup is still pending Follow up with surgical recommendations regarding right breast mastitis. Pain control for compression fractures. PT/ OT evaluation May need placement versus home health
[2019-08-15] MEDS ORDERED: VANCOMYCIN 1.5 GM in NA CHLORIDE 0.9% 500 ML IVPB SCH (11:00)
--- NOTE | 2019-08-15 12:03 | RAD REPORT ---
EXAM DESCRIPTION: CT - Abdomen Pelvis W/Wo Contrast - 08/15/2019 11:09 am CLINICAL HISTORY: renal artery thrombosis, mass COMPARISON: Renal Ultrasound-Complete dated 08/14/2019; Chest Abdomen Pelvis W Cont dated 08/11/2019; Stone Protocol dated 03/05/2019 TECHNIQUE: Biphasic, helical CT imaging of the abdomen and pelvis was performed following 100 ml non -ionic IV contrast. Patient was imaged lying on her left side. No oral contrast administered. All CT scans are performed using dose optimization technique as appropriate and may include automated exposure control or mA/KV adjustment according to patient size. FINDINGS: Left base pleural effusion matches the August 10 study. Prominent fluid retention in the subc utaneous fatty tissues also matches comparison imaging. No pericardial effusion. Hyperdense focus in the lumen of the distal esophagus may be ingested medication at the GE junction. A minimal hiatal her mohinder is present. Liver and spleen show no suspicious findings. Pancreatic atrophy is present with no pancreatic or per ipancreatic mass. No gallbladder or biliary tree abnormality seen. Numerous varices in dilated veins of the upper abdomen noted. No adrenal abnormalities identified. Left kidney enhances normally. No hydronephrosis. A nonobstructing 5 mm calyx calcification is presen t on the left. No left renal mass , pyelonephritis or acute left renal parenchymal finding. Lower zehra e right kidney shows normal enhancement pattern. The previously detailed 5-6 cm rim calcified mass in the mid upper pole right kidney is again identified. There are central calcifications as well. On th e contrast-enhanced imaging there is no internal enhancement or mass component identified. Delayed im aging shows contrast collecting within dilated calices along the superolateral margin. No internal co ntrast enhancement or collection. There is no hydronephrosis present. Partially imaged urinary bladde r shows no suspicious findings. Atrophic uterus and ovaries without suspicious findings. No dilated bowel loops or bowel wall thickening. Small amount of ascites present. No free air or pne umatosis. No hernia, mass or bulky lymphadenopathy. No suspicious bony findings. IMPRESSION: The 5-6 cm rim calcified right renal mass shows no internal enhancement and no internal collection of contrast on delayed imaging. No change in characteristics across the for image acquisi tions. 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 If so, the mass is f ully thrombosed. Complex renal cyst is possible. No significant changes from the February 2019 study. Additional nonacute findings detailed in the body of the report, similar to prior imaging.
--- NOTE | 2019-08-15 14:35 | PN ---
Date of Progress Note: 08/15/2019 Patient seen and examined. Chart reviewed. Case discussed with RN and Dr. West. The patient eager to go home; however, has some abnormalities on her renal ultrasound. Daughter at the bedside. Treatment plan explained, all questions answered. I explained to them regarding her diagnosis of liver cirrhosis and thrombocytopenia along with easy bruising. Medications: List reviewed. Physical Examination: Vital Signs: Temperature 97.4, heart rate 89, blood pressure 145/69, respirations 18, O2 95% on room air. General: Awake, alert, oriented x3. Elderly female, obese, not in any acute distress, mildly ill-appearing. CV: S1, S2. Regular rate and rhythm. Peripheral pulses present. Respiratory: Moving air well bilaterally. No wheezing or stridor. No use of accessory muscles. Gastrointestinal: Abdomen is soft, nontender, nondistended. Positive bowel sounds. Extremities: No clubbing, cyanosis, or edema. Musculoskeletal: Patient has significant pain in the thoracic and lumbar spine with palpation, decreased range of motion. Skin: No rashes. Normal skin turgor. Laboratory Data: Sodium 142, potassium 3.7, chloride 104, CO2 of 32, BUN 6, creatinine 0.36, glucose 106, calcium 7.7. WBC 5, H and H 13.1 and 38.5, platelets 61, neutrophils 38.6%. Blood cultures, no growth to date. Imaging Studies: CT scan of the abdomen and pelvis shows 5 to 6 cm rim calcified right renal mass, shows no internal enhancement and no internal collection of contrast on delayed imaging. No change in characteristics across for the image acquisitions. 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 If so, masses will be thrombosed. Complex renal cyst is possible. No significant change from February 2019. Additional nonacute findings: Patient has pancreatic atrophy, numerous varices, dilated veins, upper abdomen, left base pleural effusion, hiatal hernia. Assessment: 84-year-old female with: 1. Acute mastitis of the right breast, improved with intravenous antibiotics. No surgical intervention. Ultrasound negative for mass or abscess. Appreciate Infectious Disease input. 2. Acute hypoxia and shortness of breath, improved, likely secondary to anasarca and pleural effusion, stable on room air. 3. Anasarca related to liver cirrhosis. We will continue diuretics. We will continue fluid restriction. No GI available. She will need to follow up with GI or Hepatology as an outpatient. 4. Hypokalemia. Replace and monitor. 5. Multiple compression fractures in thoracic and lumbar spine. Patient refused MRI. She was unable to lie flat despite pain medications and anxiety medications. She will need to follow up with Neurology as well as Neurosurgery, Dr. Vivar, for kyphoplasty to improve functionality and reduce pain. 6. Intractable pain secondary to spine fractures in right shoulder. 7. Right kidney mass, possible malignancy versus cyst versus a thrombosed aneurysm. Discussed in detail with Dr. West. She recommends outpatient followup and biopsy. She does not recommend any anticoagulation as this is chronic, which is stable from February of 2019, and due to her comorbid conditions and functional status, she is not a candidate for anticoagulation, especially this is a cancer thrombosis. 8. Elevated LFTs secondary to liver cirrhosis, improved, likely secondary to liver cirrhosis. 9. Diabetes mellitus type 2, [id number], with hyperglycemia. We will continue sliding scale insulin. Monitor Accu-Cheks. 10. History of chronic kidney disease stage 3. Kidney functions stable. Continue to monitor. Avoid nonsteroidal anti-inflammatory drugs. 11. Essential hypertension, stable. 12. Deep vein thrombosis prophylaxis, sequential compression devices. No chemical anticoagulation due to thrombocytopenia. Plan: Continue PT, OT. Family wanting to go home with home PT. They use [employer]. Patient has a possibility of a renal mass, which may be the primary resulting in metastases to the thoracic and lumbar spine. A bone scan is pending at this time. Nuclear Medicine has been paged. Patient to follow up with Hematology Oncology as outpatient with Dr. West for further workup. 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 No apparent evidence of malignancy. Patient again refused bone scan. She was offered pre test IV pain meds and anxiolytics however chooses not to undergo scan. Patient is alert, oriented x3. She understands the implications of refusing the test including delay in diagnosis, treatment and worsening condition that may even lead to . Daughter at the bed side. All questions answered SA/MODL Voice ID: [id number] Report ID: [id number] ERWIN
--- NOTE | 2019-08-15 16:04 | EDPHYS ---
Physician Documentation [facility] Name: Camilla Jarquin Age: 84 yrs Sex: Female : 1935 Arrival Date: 08/11/2019 Time: 11:19 Bed 15 Private MD: ED Physician Javier Pennington HPI: 08/10 18:05 This 84 yrs old Female presents to ER via Wheelchair with complaints of kdr Shortness Of Breath, Urinary Problem, Leg Swelling. 18:05 The patient has shortness of breath at rest, with light activity. Onset: The kdr symptoms/episode began/occurred gradually, 2 month(s) ago, Becoming much worse the last two days. She has also had increased swelling to her lower extremities with some weeping from the left lower extremity. Duration: The symptoms are continuous, and are steadily getting worse. The patient's shortness of breath is aggravated by exertion, light activity. Associated signs and symptoms: Pertinent positives: She has had an apparent ongoing infection of the left breast. Severity of symptoms: At their worst the symptoms were mild moderate just prior to arrival, in the emergency department the symptoms are unchanged. The patient has experienced similar episodes in the past, chronically, but today's symptoms are worse. The patient has been recently seen by a physician:. Was put on abx for right breast mastitis without improvement - concern for cancer. Historical: - Allergies: 11:29 Codeine; hb 11:29 PENICILLINS; hb 11:29 Sulfa (Sulfonamide Antibiotics); hb 11:29 Toradol; hb - PMHx: 11:29 Diabetes - IDDM; Hypertension; neuropathy; Depression; renal insufficiency; hb - Immunization history:: Adult Immunizations up to date. - Social history:: Patient/guardian denies using Smoking status: Patient denies any tobacco usage or history of. ROS: 18:05 Constitutional: Negative for fever, chills, and weight loss, Eyes: Negative for injury, kdr pain, redness, and discharge, ENT: Negative for injury, pain, and discharge, Neck: Negative for injury, pain, and swelling, Abdomen/GI: Negative for abdominal pain, nausea, vomiting, diarrhea, and constipation, Back: Negative for injury and pain, : Negative for injury, bleeding, discharge, and swelling, MS/Extremity: Negative for injury and deformity, Neuro: Negative for headache, weakness, numbness, tingling, and seizure activity. Psych: Negative for depression, anxiety, suicide ideation, homicidal ideation, and hallucinations, Allergy/Immunology: Negative for hives, rash, and allergies, Endocrine: Negative for neck swelling, polydipsia, polyuria, polyphagia, and marked weight changes, Hematologic/Lymphatic: Negative for swollen nodes, abnormal bleeding, and unusual bruising. 18:05 Cardiovascular: Positive for Right breast pain and swelling. 18:05 Respiratory: Positive for dyspnea on exertion, shortness of breath, on exertion. Negative for hemoptysis, orthopnea, pleurisy. 18:05 Abdomen/GI: Positive for Obese. 18:05 MS/extremity: Positive for swelling, tenderness, of the lateral aspect of left calf, left calf, medial aspect of left calf and left whipple, Weeping. Exam: 18:05 Constitutional: This is a well developed, well nourished patient who is awake, alert, kdr and in no acute distress. Head/Face: Normocephalic, atraumatic. Eyes: Pupils equal round and reactive to light, extra-ocular motions intact. Lids and lashes normal. Conjunctiva and sclera are non-icteric and not injected. Cornea within normal limits. Periorbital areas with no swelling, redness, or edema. Neck: Trachea midline, no thyromegaly or masses palpated, and no cervical lymphadenopathy. Supple, full range of motion without nuchal rigidity, or vertebral point tenderness. No Meningismus. Cardiovascular: Regular rate and rhythm with a normal S1 and S2. No gallops, murmurs, or rubs. Normal PMI, no JVD. No pulse deficits. Back: No spinal tenderness. No costovertebral tenderness. Full range of motion. MS/ Extremity: Pulses equal, no cyanosis. Neurovascular intact. Full, normal range of motion. Neuro: Awake and alert, GCS 15, oriented to person, place, time, and situation. Cranial nerves II-XII grossly intact. Motor strength 5/5 in all extremities. Sensory grossly intact. Cerebellar exam normal. Normal gait. Psych: Awake, alert, with orientation to person, place and time. Behavior, mood, and affect are within normal limits. 18:05 Chest/axilla: Inspection: normal, cellulitis, of the right breast Palpation: tenderness, that is moderate, of the right breast, Breasts: cellulitis, that is moderate, of the right breast, mass(es), that is moderate-sized, nipple discharge, is not appreciated, swelling, that is moderate, of the right breast, tenderness, that is mild of the right breast. Vital Signs: 11:22 BP 137 / 82; Pulse 89; Resp 24; Temp 98.2; Pulse Ox 95% on R/A; Pain 0/10; hb 14:59 BP 131 / 53; Pulse 79; Resp 15; Temp 97.8(O); Pulse Ox 95% on R/A; mh5 18:02 BP 123 / 60; Pulse 100; Resp 17; Temp 98.0(O); Pulse Ox 95% on R/A; mh5 MDM: 17:21 Patient medically screened. kdr 18:05 Data reviewed: vital signs, nurses notes. Counseling: I had a detailed discussion with kdr the patient and/or guardian regarding: the historical points, exam findings, and any diagnostic results supporting the discharge/admit diagnosis, lab results, radiology results, the need for further work-up and treatment in the hospital. 08/10 11:55 Order name: Basic Metabolic Panel; Complete Time: 13:50 [facility] 08/10 11:55 Order name: CBC with Diff [facility] 08/10 11:55 Order name: LFT's; Complete Time: 13:50 [facility] 08/10 11:55 Order name: Magnesium; Complete Time: 13:50 [facility] 08/10 11:55 Order name: NT PRO-BNP; Complete Time: 13:50 [facility] 08/10 11:55 Order name: Troponin (emerg Dept Use Only); Complete Time: 13:50 [facility] 08/10 12:13 Order name: Blood Culture Adult (2) [facility] 08/10 14:10 Order name: CBC Smear Scan [facility] 08/10 15:27 Order name: Urine Dipstick--Ancillary (enter results) 08/10 17:51 Order name: Urinalysis [facility] 08/10 17:51 Order name: CBC with Automated Diff [facility] 08/10 17:51 Order name: CBC with Automated Diff [facility] 08/10 17:51 Order name: Comprehensive Metabolic Panel [facility] 08/10 17:51 Order name: Comprehensive Metabolic Panel [facility] 08/10 11:55 Order name: XRAY Chest (1 view); Complete Time: 13:50 [facility] 08/10 17:52 Order name: Magnesium [facility] 08/10 17:52 Order name: Magnesium [facility] 08/10 17:52 Order name: Phosphorus [facility] 08/10 17:52 Order name: Phosphorus [facility] 08/10 17:52 Order name: Troponin I [facility] 08/10 17:52 Order name: Troponin I [facility] 08/10 17:52 Order name: Troponin I [facility] 08/10 17:52 Order name: Troponin I [facility] 08/10 19:06 Order name: CT [facility] 08/10 19:19 Order name: Glucose, Ancillary Testing [facility] 08/10 19:20 Order name: Vancomycin Level Trough [facility] 08/10 19:21 Order name: Vancomycin Peak [facility] 08/10 11:55 Order name: EKG; Complete Time: 11:56 [facility] 08/10 11:55 Order name: Cardiac monitoring; Complete Time: 13:05 [facility] 08/10 11:55 Order name: EKG - Nurse/Tech; Complete Time: 13:05 [facility] 08/10 11:55 Order name: IV Saline Lock; Complete Time: 12:37 [facility] 08/10 11:55 Order name: Labs collected and sent; Complete Time: 12:36 [facility] 08/10 11:55 Order name: O2 Per Protocol; Complete Time: 12:10 [facility] 08/10 11:55 Order name: O2 Sat Monitoring; Complete Time: 12:10 [facility] 08/10 12:13 Order name: James; Complete Time: 13:01 [facility] 08/10 17:51 Order name: CONS Physician Consult [facility] 08/10 17:51 Order name: Consistent Carb (ADA) 1800 Tanvir [facility] Administered Medications: 13:28 Drug: Lasix 40 mg Route: IVP; Site: right hand; ll1 14:25 Drug: Potassium Chloride 40 mEq Route: PO; vc 16:09 Drug: Tylenol 1000 mg Route: PO; vc 19:38 Drug: Lidoderm 5 % (700 mg/patch) 1 patches Route: Topical; Site: left upper arm; vc Disposition: 08/11/19 17:21 Hospitalization ordered by Bhanu Stone for Observation. Preliminary diagnosis are Shortness of breath, Peripheral Edema, Right breast cellulitis. - Bed requested for Telemetry/MedSurg (observation). - Status is Observation. vc - Condition is Fair. - Problem is an ongoing problem. - Symptoms are unchanged. Signatures: Dispatcher [employer] EDMS Lazara Nolan bd Javier Pennington MD MD kdr Shannan Orr, NATANAEL SANTOYO Crystal Collins RN RN vc Lewis, Lynsay, RN RN ll1 Corrections: (The following items were deleted from the chart) 17:54 17:21 Hospitalization Ordered by Bhanu Stone MD for Observation. Preliminary bd diagnosis is Shortness of breath; Peripheral Edema, Right breast cellulitis. Bed requested for Telemetry/MedSurg (observation). Status is Observation. Condition is Fair. Problem is an ongoing problem. Symptoms are unchanged. kdr 20:29 17:54 08/11/2019 17:21 Hospitalization Ordered by Bhanu Stone MD for Observation. vc Preliminary diagnosis is Shortness of breath; Peripheral Edema, Right breast cellulitis. Bed requested for Telemetry/MedSurg (observation). Status is Observation. Condition is Fair. Problem is an ongoing problem. Symptoms are unchanged. bd
--- NOTE | 2019-08-15 16:04 | ER ---
Nurse's Notes [facility] Name: Camilla Jarquin Age: 84 yrs Sex: Female : 1935 Arrival Date: 08/11/2019 Time: 11:19 Bed 15 Private MD: Diagnosis: Shortness of breath;Peripheral Edema, Right breast cellulitis Presentation: 08/10 11:22 Chief complaint: Generalized swelling x 2 months, SOB x 2-3 days. Instructed by home health nurse and Dr. Jeter to come to ED if SOB worsened. Coronavirus screen: Patient reports shortness of breath or difficulty breathing. mask placed on patient. Ebola Screen: No symptoms or risks identified at this time. Initial Sepsis Screen: Does the patient meet any 2 criteria? RR > 20 per min. Initial Sepsis Screen: Does the patient have a suspected source of infection? No. Patient's initial sepsis screen is negative. Risk Assessment: Do you want to hurt yourself or someone else? Patient reports no desire to harm self or others. Onset of symptoms is unknown. 11:22 Method Of Arrival: Wheelchair hb 11:22 Acuity: SHOAIB 3 hb Historical: - Allergies: 11:29 Codeine; hb 11:29 PENICILLINS; hb 11:29 Sulfa (Sulfonamide Antibiotics); hb 11:29 Toradol; hb - PMHx: 11:29 Diabetes - IDDM; Hypertension; neuropathy; Depression; renal insufficiency; hb - Immunization history:: Adult Immunizations up to date. - Social history:: Patient/guardian denies using Smoking status: Patient denies any tobacco usage or history of. Screenin:03 Abuse screen: Denies threats or abuse. Nutritional screening: No deficits noted. ll1 Tuberculosis screening: No symptoms or risk factors identified. Fall Risk IV access (20 points). Ambulatory Aid- Crutches/Cane/Walker (15 pts). Gait- Impaired (20 pts.). Total [place] Fall Scale indicates High Risk Score (45 or more points). Fall prevention measures have been instituted. Side Rails Up X 2 Placed Close to Nursing Station Frequent Obs/Assessments Occuring Family Present and informed to notify staff if the need to leave the bedside As available patient and family educated on Fall Prevention Program and Strategies. Assessment: 12:15 General: Appears uncomfortable, Behavior is calm, cooperative, appropriate for age. ll1 Pain: Complains of pain in right breast Quality of pain is described as aching, Pain began 2 months Is intermittent. Neuro: No deficits noted. Cardiovascular: Reports shortness of breath, Denies chest pain, Heart tones S1 S2 Capillary refill < 3 seconds Clubbing of nail beds is absent JVD is absent Patient's skin is warm and dry. Pulses are all present. Edema is 2+ to left upper arm, left elbow, left forearm, left wrist, left hand and left fingers is 3+ to left lower thigh, left knee, left midcalf, left ankle, left foot, left toes, right lower thigh, right knee, right midcalf, right ankle, right foot and right toes Rhythm is atrial fibrillation. Respiratory: Reports shortness of breath on exertion labored breathing Airway is patent Trachea midline Respiratory effort is labored, Respiratory pattern is regular, symmetrical, tachypnea with any exertion Breath sounds are clear bilaterally. the patient has moderate shortness of breath. GI: No deficits noted. : James in place Urine is clear, Reports burning with urination. Derm: Hard dried skin to right breast. Entire breast swollen, no drainage or open wounds noted. Reports pain pain, redness, swelling to right breast for 2 months. 13:15 Reassessment: No changes from previously documented assessment. Patient and/or family ll1 updated on plan of care and expected duration. Pain level reassessed. Patient is alert, oriented x 3, equal unlabored respirations, skin warm/dry/pink. Vital Signs: 11:22 BP 137 / 82; Pulse 89; Resp 24; Temp 98.2; Pulse Ox 95% on R/A; Pain 0/10; hb 14:59 BP 131 / 53; Pulse 79; Resp 15; Temp 97.8(O); Pulse Ox 95% on R/A; mh5 18:02 BP 123 / 60; Pulse 100; Resp 17; Temp 98.0(O); Pulse Ox 95% on R/A; mh5 ED Course: 11:19 Patient arrived in ED. fj1 11:28 Triage completed. hb 11:52 Gerald Jarquin RN is Primary Nurse. ll1 11:54 Javier Pennington MD is Attending Physician. kdr 12:30 XRAY Chest (1 view) In Process Unspecified. EDMS 13:02 James cath inserted, using sterile technique, Patient tolerated well. [facility] 13:02 James cath inserted, using sterile technique, 18 Fr., by me, balloon inflated. [facility] 13:03 Patient has correct armband on for positive identification. Placed in gown. Bed in low mh5 position. Call light in reach. Side rails up X2. Warm blanket given. Pulse ox on. NIBP on. 13:05 Troponin (emerg Dept Use Only) Sent. 5 13:05 NT PRO-BNP Sent. 5 13:06 Magnesium Sent. 5 13:06 LFT's Sent. 5 13:06 Basic Metabolic Panel Sent. 5 15:21 Assist provider with laceration repair Set up tray. Patient tolerated well. [facility] 17:20 Bhanu Stone MD is Hospitalizing Provider. kdr Administered Medications: 13:28 Drug: Lasix 40 mg Route: IVP; Site: right hand; ll1 14:25 Drug: Potassium Chloride 40 mEq Route: PO; vc 16:09 Drug: Tylenol 1000 mg Route: PO; vc 19:38 Drug: Lidoderm 5 % (700 mg/patch) 1 patches Route: Topical; Site: left upper arm; vc Outcome: 17:21 Decision to Hospitalize by Provider. kdr 20:29 Patient left the ED. vc Signatures: Dispatcher [employer] Javier Meneses MD MD [facility] Shannan Orr RN RN hb Martinez, Maria [facility] Crystal Collins RN RN vc James, Frank [facility] Gerald Jarquin RN RN ll1
[2019-08-15 18:21] VITALS: BP 133/79; TEMP 97.2
--- NOTE | 2019-08-15 19:57 | PN ---
Date of Progress Note: 08/15/2019 Diagnosis: Right breast mastitis. Subjective: Patient is doing better. No fever. No shortness of breath. Less pain in the area. Physical Examination: General: Patient is awake, in no distress. Feels better. Breasts: The breast area as was in the last few days. It is less tender. Ultrasound shows no fluid collection. Plan: Continue with antibiotics. Follow up in my office in a week. Patient will need a mammogram a s the neoplasia workup once she is able to tolerate that. If this redness come back once again, she was advised to come to the ER immediately. WILLOW/JANEY Voice ID: [id number] Report ID: [id number]
--- NOTE | 2019-08-15 23:59 | DS ---
Date of Discharge: 08/15/2019 Consultants: Dr. Cuevas, General Surgery. Dr. Moya, Neurology. Dr. West, Hematology. Admitting Diagnoses: 1.Anasarca. 2.Acute mastitis of the right breast. 3.Shortness of breath. 4.Diabetes. 5.Essential hypertension. 6.Elevated liver function tests. 7.Obesity, BMI 37. Discharge Diagnoses: 1.Acute mastitis of the right breast, resolving. 2.Acute hypoxia and shortness of breath, improved secondary to anasarca. 3.Anasarca secondary to liver cirrhosis. 4.Pleural effusion. 5.Hypokalemia, replace. 6.Multiple compression fractures, thoracic and lumbar spine. Patient refused MRI. 7.Intractable pain secondary to spine fractures and the right shoulder. 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 9.Elevated liver function tests secondary to liver cirrhosis. 10.Diabetes mellitus, type 2 [id number] with hyperglycemia. 11.History of chronic kidney disease, stage 3. 12.Essential hypertension. 13.Hypertensive heart disease and moderate pulmonary hypertension. 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 Patient was admitted for r ight breast mastitis. She was seen by general surgeon, Dr. Cuevas. Antibiotics were started. Her ultrasound of the breast showed no mass or abscess. No surgical intervention was recommended. Sammie ent had a CT of the chest, abdomen, and pelvis also done which showed small left-sided pleural effusi on, likely due to her anasarca. 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 Patient was also found to have progression of multiple thoracic and lumbar c ompression fracture since February of 2019. She does not have any history of malignancy. Therefore, MRI of the thoracic and lumbar spine were ordered, but patient refused. She was even given medicati ons to help, relax and pain medications, but she was unable to lay down flat long enough for the MRI and refused multiple attempts, there were multiple attempts for the MRI. Dr. Moya with Neurology was consulted. Bone scan was also recommended. However, patient again refused and did not want to try to lay down. Echocardiogram was also done, showed EF of 55%-60%. No wall motion abnormality. Romina wing was found to have left ventricular hypertrophy and diastolic dysfunction and moderate pulmonar y hypertension. Patient also was found to have mild aortic insufficiency and mitral regurgitation. Patient was started on Aldactone. Patient was then cleared from General surgery standpoint regarding her possibly pathologic thoracic and lumbar fractures in the absence of fall and other trauma as wel l as this possible kidney mass which now turns out to be a thrombosed aneurysm of the renal artery. Occult malignancy was suspected, however, there was no evidence thereof. Dr. West consulted she alicia mmended outpatient followup in her clinic. Patient also recommended to follow up with [facility] for possible kyphoplasty to help alleviate the pain in her back and to improve functionali ty. Patient did not have any signs of sepsis or she was afebrile. Blood pressure was stable. Her w javier blood cell count was normal. Her blood cultures also did not show any growth. She was then leander ared from surgical standpoint for the mastitis. She will finish off course of antibiotics at home. Patient was recommended to go to [facility] facility due to her inability to ambulate. Patient has [facility] with PT and the daughter and patient want to continue this. They did not want to go to [facility] facility. They understand the patient is at risk for fall, which can resul t in fractures, bleeding, and even . They did not wish to go to a facility at this time. Bhavin more's daughter states that she is at home all the time. Patient does not really get up much other bob n to use the potty chair and daughter is able to help her with that and the patient is independent in that regard. Followup: Patient is to follow up with primary care physician in 2-3 days. Follow up with oncologDr. Brett sneed in 1 week. Follow up with neurologist, Dr. Moya in 2 weeks. Follow up with neurosur Dr. Ghazala reyes in 2 weeks. Return to ER for worsening condition. Diet: Low-sodium, free fluid restriction. Activity: Fall precautions. Medications: As per medication reconciliation list. Physical Examination: Findings, please see progress note dictated on day of discharge. Total time spent discharging patient was 41 minutes. JOSHUA Voice ID: [id number] Report ID: [id number]
== END 2019-08-15 16:57 | disposition home health service (06) | DRG 600 ==
LOC: ER 11:13 → ERHOLD 17:45 → 2ND 19:50
PROVIDERS: ADMIT Family Medicine; ATTEND Family Medicine
DX: N61.0 Mastitis without abscess (principal); E44.0 Moderate protein-calorie malnutrition; M48.56XA Collapsed vertebra, not elsewhere classified, lumbar region, initial encounter for fracture; M48.54XA Collapsed vertebra, not elsewhere classified, thoracic region, initial encounter for fracture; N18.3 Chronic kidney disease, stage 3 (moderate); E11.22 Type 2 diabetes mellitus with diabetic chronic kidney disease; Z74.01 Bed confinement status; Z88.1 Allergy status to other antibiotic agents; Z88.5 Allergy status to narcotic agent; Z88.0 Allergy status to penicillin; Z88.8 Allergy status to other drugs, medicaments and biological substances; E78.5 Hyperlipidemia, unspecified; E66.9 Obesity, unspecified; Z68.37 Body mass index [BMI] 37.0-37.9, adult; R60.1 Generalized edema; R06.02 Shortness of breath; R79.89 Other specified abnormal findings of blood chemistry; Z66 Do not resuscitate; K74.60 Unspecified cirrhosis of liver; E87.6 Hypokalemia; D69.6 Thrombocytopenia, unspecified; E11.65 Type 2 diabetes mellitus with hyperglycemia; E11.40 Type 2 diabetes mellitus with diabetic neuropathy, unspecified; R09.02 Hypoxemia; I13.10 Hypertensive heart and chronic kidney disease without heart failure, with stage 1 through stage 4 chronic kidney disease, or unspecified chronic kidney disease; I27.20 Pulmonary hypertension, unspecified; Z53.29 Procedure and treatment not carried out because of patient's decision for other reasons; I35.1 Nonrheumatic aortic (valve) insufficiency; I34.0 Nonrheumatic mitral (valve) insufficiency
CPT/HCPCS: 36415; 51702; 71045; 71260; 74177; 74178; 76641; 76770; 80048; 80053; 80076; 80202; 81003; 81015; 82947; 83036; 83735; 83880; 84100; 84132; 84484; 85025; 87040; 93005; 93306; 94760; 96374; 97161; 99285; J1815; J1940; J3475; J7030; J7040; Q9967